=== PATIENT | female | born 2000 | race Caucasian/White ===

== ENCOUNTER 2018-02-02 15:42 | Emergency (ER) | payer BC ==
--- NOTE | 2018-02-02 16:26 | ER ---
Nurse's Notes [facility] Name: Jaymie Garduno Age: 17 yrs Sex: Female : 2000 Arrival Date: 02/02/2018 Time: 15:46 Bed 7 Private MD: Gordy Chapin Diagnosis: Pilonidal cyst without abscess Presentation: 02/02 15:58 Presenting complaint: Patient states: "I have a lump on the top of my butt crack. Its lk1 been hurting for about a week, but the lump I noticed today.". Transition of care: patient was not received from another setting of care. Onset of symptoms was February 02, 2018 at 09:00. Care prior to arrival: None. 15:58 Method Of Arrival: Ambulatory lk1 15:58 Acuity: GABY 3 lk1 Triage Assessment: 16:00 General: Appears in no apparent distress. Behavior is calm, cooperative, appropriate lk1 for age. Pain: Complains of pain in coccyx and gluteal cleft Pain currently is 7 out of 10 on a pain scale. Quality of pain is described as pressure. 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 - Social history:: Smoking status: Patient/guardian denies using tobacco. Screenin:25 Abuse screen: Denies threats or abuse. Denies injuries from another. Nutritional hj screening: No deficits noted. Tuberculosis screening: No symptoms or risk factors identified. Fall Risk None identified. Assessment: 16:26 General: Appears in no apparent distress. uncomfortable, Behavior is calm, cooperative, hj appropriate for age. Pain: Complains of pain in gluteal cleft and coccyx. Neuro: Level of Consciousness is awake, alert, obeys commands, Oriented to person, place, time, situation, Appropriate for age. Cardiovascular: Capillary refill < 3 seconds Patient's skin is warm and dry. Respiratory: Airway is patent Respiratory effort is even, unlabored, Respiratory pattern is regular, symmetrical. GI: No signs and/or symptoms were reported involving the gastrointestinal system. : No signs and/or symptoms were reported regarding the genitourinary system. EENT: No signs and/or symptoms were reported regarding the EENT system. Derm: Reports pain. Musculoskeletal: No signs and/or symptoms reported regarding the musculoskeletal system. Vital Signs: 16:01 BP 124 / 86; Pulse 87; Resp 15; Temp 98.2(O); Pulse Ox 99% on R/A; Weight 87.09 kg (R); lk1 Height 5 ft. 6 in. (167.64 cm) (R); Pain 7/10; 16:36 BP 123 / 71; Pulse 90; Resp 18; Pulse Ox 100% on R/A; hj 16:01 Body Mass Index 30.99 (87.09 kg, 167.64 cm) lk1 ED Course: 15:46 Patient arrived in ED. mr 15:46 Gordy Chapin MD is Private Physician. mr 15:59 Triage completed. lk1 16:02 Arm band placed on right wrist. lk1 16:04 [facility] Herbert [facility]-C [facility]. snw 16:04 Alberto Flowers MD is Attending Physician. snw 16:13 Roberth Cruz RN is Primary Nurse. hj 16:25 Joes F Collado MD is Referral Physician. snw 16:25 Patient has correct armband on for positive identification. Placed in gown. Bed in low hj position. Call light in reach. Side rails up X 1. Adult w/ patient. 16:28 No provider procedures requiring assistance completed. Patient did not have IV access hj during this emergency room visit. Administered Medications: 16:13 Drug: Sterling (7.5 mg-325 mg) 1 tabs Route: PO; hj 16:20 Follow up: Response: No adverse reaction hj 16:13 Drug: Clindamycin 300 mg Route: PO; hj 16:21 Follow up: Response: No adverse reaction hj 16:14 Drug: Hibiclens 4 % 1 application Route: Topical; Site: affected area; hj Outcome: 16:25 Discharge ordered by . snw 16:28 Discharged to home ambulatory, with family. hj 16:28 Condition: stable 16:28 Discharge instructions given to patient, Instructed on discharge instructions, follow up and referral plans. Demonstrated understanding of instructions, follow-up care. 16:38 Patient left the ED. hj Signatures: Ashley Herbert, CHILOC COMMODITY DIRECTOR-[place] Xochitl Quintero mr Roberth Cruz, RN RN Heaven Avitia RN RN lk1
--- NOTE | 2018-02-02 16:26 | EDPHYS ---
Physician Documentation [facility] Name: Jaymie Garduno Age: 17 yrs Sex: Female : 2000 Arrival Date: 02/02/2018 Time: 15:46 Bed 7 Private MD: Gordy Chapin ED Physician Alberto Flowers HPI: 02/02 16:15 This 17 yrs old Female presents to ER via Ambulatory with complaints of snw Abscess. 16:15 the patient presents with a swollen area of the gluteal cleft. Description: fluctuant. snw Onset: The symptoms/episode began/occurred suddenly, 1 week(s) ago, and became persistent. Possible cause(s): unknown. Modifying factors: the symptoms are alleviated by nothing, the symptoms are aggravated by pressure, sitting, squeezing the lesion and expressing the contents. Severity of symptoms: At their worst the symptoms were moderate. The patient has not experienced similar symptoms in the past. The patient has not recently seen a physician. 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 - Social history:: Smoking status: Patient/guardian denies using tobacco. ROS: 16:14 Constitutional: Negative for fever, chills, and weight loss, Eyes: Negative for injury, snw pain, redness, and discharge, ENT: Negative for injury, pain, and discharge, Neck: Negative for injury, pain, and swelling, Cardiovascular: Negative for chest pain, palpitations, and edema, Respiratory: Negative for shortness of breath, cough, wheezing, and pleuritic chest pain, Abdomen/GI: Negative for abdominal pain, nausea, vomiting, diarrhea, and constipation, Back: Negative for injury and pain, : Negative for injury, bleeding, discharge, and swelling, MS/Extremity: Negative for injury and deformity, + pain to gluteal cleft Skin: Negative for injury, rash, and discoloration, Neuro: Negative for headache, weakness, numbness, tingling, and seizure. Exam: 16:14 Constitutional: This is a well developed, well nourished patient who is awake, alert, snw and in no acute distress. Head/Face: Normocephalic, atraumatic. Eyes: Pupils equal round and reactive to light, extra-ocular motions intact. Lids and lashes normal. Conjunctiva and sclera are non-icteric and not injected. Cornea within normal limits. Periorbital areas with no swelling, redness, or edema. ENT: Nares patent. No nasal discharge, no septal abnormalities noted. Tympanic membranes are normal and external auditory canals are clear. Oropharynx with no redness, swelling, or masses, exudates, or evidence of obstruction, uvula midline. Mucous membranes moist. Neck: Trachea midline, no thyromegaly or masses palpated, and no cervical lymphadenopathy. Supple, full range of motion without nuchal rigidity, or vertebral point tenderness. No Meningismus. Chest/axilla: Normal chest wall appearance and motion. Nontender with no deformity. No lesions are appreciated. Cardiovascular: Regular rate and rhythm with a normal S1 and S2. No gallops, murmurs, or rubs. Normal PMI, no JVD. No pulse deficits. Respiratory: Lungs have equal breath sounds bilaterally, clear to auscultation and percussion. No rales, rhonchi or wheezes noted. No increased work of breathing, no retractions or nasal flaring. Abdomen/GI: Soft, non-tender, with normal bowel sounds. No distension or tympany. No guarding or rebound. No evidence of tenderness throughout. Back: No spinal tenderness. No costovertebral tenderness. Full range of motion. MS/ Extremity: Pulses equal, no cyanosis. Neurovascular intact. Full, normal range of motion. Neuro: Awake and alert, GCS 15, oriented to person, place, time, and situation. Cranial nerves II-XII grossly intact. Motor strength 5/5 in all extremities. Sensory grossly intact. Cerebellar exam normal. Normal gait. Psych: Awake, alert, with orientation to person, place and time. Behavior, mood, and affect are within normal limits. 16:14 Skin: Appearance: normal except for affected area, induration, that is mild is noted, located on the gluteal cleft. Vital Signs: 16:01 BP 124 / 86; Pulse 87; Resp 15; Temp 98.2(O); Pulse Ox 99% on R/A; Weight 87.09 kg (R); lk1 Height 5 ft. 6 in. (167.64 cm) (R); Pain 7/10; 16:36 BP 123 / 71; Pulse 90; Resp 18; Pulse Ox 100% on R/A; hj 16:01 Body Mass Index 30.99 (87.09 kg, 167.64 cm) lk1 MDM: 16:05 Patient medically screened. [facility] 16:29 Data reviewed: vital signs, nurses notes. Data interpreted: Pulse oximetry: on room air snw is 99 %. Interpretation: normal. Counseling: I had a detailed discussion with the patient and/or guardian regarding: the historical points, exam findings, and any diagnostic results supporting the discharge/admit diagnosis, the presence of at least one elevated blood pressure reading (>120/80) during this emergency department visit, the need for outpatient follow up, to return to the emergency department if symptoms worsen or persist or if there are any questions or concerns that arise at home. Special discussion: I have referred the patient to see his PCP for further evaluation of high blood pressure. Based on the history and exam findings, there is no indication for further emergent testing or inpatient evaluation. I discussed with the patient/guardian the need to see the general surgeon for further evaluation of the symptoms. I discussed with the patient/guardian the need to see the primary care provider for further evaluation of the symptoms. Administered Medications: 16:13 Drug: Negley (7.5 mg-325 mg) 1 tabs Route: PO; 16:20 Follow up: Response: No adverse reaction 16:13 Drug: Clindamycin 300 mg Route: PO; 16:21 Follow up: Response: No adverse reaction 16:14 Drug: Hibiclens 4 % 1 application Route: Topical; Site: affected area; hj Disposition: 02/03 07:33 Co-signature as Attending Physician, Alberto Flowers MD I agree with the assessment and [facility] plan of care. Disposition: 02/02/18 16:25 Discharged to Home. Impression: Pilonidal cyst without abscess. - Condition is Stable. - Discharge Instructions: Pilonidal Cyst, Sitz Bath. - Prescriptions for Clindamycin HCl 300 mg Oral Capsule - take 1 capsule by ORAL route every 8 hours for 10 days; 30 capsule. Diclofenac Sodium 75 mg Oral Tablet Sustained Release - take 1 tablet by ORAL route 2 times per day; 30 tablet. - Medication Reconciliation Form, Thank You Letter, Antibiotic Education, Prescription Opioid Use form. - Follow up: Jose F Collado MD; When: 1 - 2 days; Reason: Recheck today's complaints, Continuance of care, Re-evaluation by your physician. Signatures: Alberto Flowers MD MD cha Therrien, Shelly, ABRASIVE MIXER HELPER-C ABRASIVE MIXER HELPER-Csnw Roberth Cruz, RN RN Heaven Monk RN RN lk1
[2018-02-02] MEDS ORDERED: HYDROCODONE/APAP 7.5/325 MG TAB ONE (16:35)
[2018-02-02] MEDS ORDERED: CLINDAMYCIN HCL 150 MG CAP ONE (16:35)
[2018-02-02 16:50] VITALS: TEMP 98.2
[2018-02-02 16:51] VITALS: BP 123/71; O2SAT 100
== END 2018-02-02 16:38 | disposition home or self-care (01) ==
LOC: ER 15:42
DX: L05.91 Pilonidal cyst without abscess (principal); F41.9 Anxiety disorder, unspecified; F32.9 Major depressive disorder, single episode, unspecified; Z88.5 Allergy status to narcotic agent
CPT/HCPCS: 99283

== ENCOUNTER 2018-07-12 06:06 | Emergency (ER) | payer BC, SELFPAY ==
[2018-07-12] MEDS ORDERED: NA CHLORIDE 0.9% 1,000 ML ONE (06:44)
[2018-07-12] MEDS ORDERED: KETOROLAC 30 MG/ML INJ ONE (06:44)
[2018-07-12] MEDS ORDERED: ONDANSETRON 4 MG/2 ML VIAL ONE (06:45)
[2018-07-12 06:56] LABS: Urine Blood 2+ (NEG); Urine Glucose NEGATIVE (NEG); Urine Protein TRACE (NEG); Urine Specific Gravity >1.030 (1.005-1.030); Urine pH 5.5 (5.0-7.0)
[2018-07-12 07:17] LABS: Urine Bacteria <20 /HPF (<20); Urine Culture Reflex Order NOT NEEDED
[2018-07-12] MEDS ORDERED: PROMETHAZINE 25 MG/ML VIAL ONE (07:18)
[2018-07-12 07:29] LABS: Absolute Lymphocytes (CBC) 2.5 K/uL (0.7-4.9); Absolute Monocytes 0.7 K/uL (0.1-1.3); Absolute Neutrophil 3.6 K/uL (1.8-8.0); Basophils % 0.6 % (0-1.3); Eosinophils % 0.6 % (0-4.4); Hematocrit 40.6 % (36.0-45.0); Lymphocytes % 36.3 % (15.3-44.8); MCH 30.6 pg (27.0-35.0); MCV 88.1 fL (80-100); Monocytes % 9.9 % (3.3-12.3)
[2018-07-12 07:31] LABS: ALT/SGPT 32 U/L (12-78); AST/SGOT 19 U/L (15-37); Albumin 3.8 g/dL (3.4-5.0); Alkaline Phosphatase 56 U/L (45-117); BUN Blood Urea Nitrogen 10 mg/dL (7-18); Bicarbonate 23 mmol/L (21-32); Bilirubin Direct < 0.1 mg/dL (0-0.2); Bilirubin Total 0.3 mg/dL (0.2-1.0); Glucose Level 99 mg/dL (74-106); Lipase 116 U/L (73-393); Potassium 3.9 mmol/L (3.5-5.1); Protein, Total 7.5 g/dL (6.4-8.2); Sodium Level 140 mmol/L (136-145)
--- NOTE | 2018-07-12 08:25 | RAD REPORT ---
EXAM DESCRIPTION: CT - Stone Protocol - 07/12/2018 7:13 am CLINICAL HISTORY: Flank pain. Left flank pain COMPARISON: No comparisons TECHNIQUE: Axial images were obtained without oral or IV contrast. Lack of contrast limits solid org an and vascular assessment. The [id number] spans the entirety of the system partially obscuring uppermost abdomen and lung bases. Coronal reformatted images were obtained and reviewed. All CT scans are performed using dose optimization technique as appropriate and may include automated exposure control or mA/KV adjustment according to patient size. FINDINGS: The lower lung yang are clear. Imaged portions of the liver and spleen show no suspicious findings on non-contrast imaging. The panc reas and adrenal glands are normal. No pathologic lymphadenopathy in the abdomen or pelvis. 5 mm stone (910 HU) mid left ureter results in moderate left hydronephrosis. Additional punctate bila teral renal calculi. No bowel obstruction, free air, free fluid or abscess. Normal appendix noted. No significant bony abnormality. IMPRESSION: 5 mm stone (910 HU) mid left ureter resulting in moderate left hydronephrosis.
--- NOTE | 2018-07-12 08:49 | ER ---
Nurse's Notes [facility] Name: Jaymie Garduno Age: 18 yrs Sex: Female : 2000 Arrival Date: 07/12/2018 Time: 06:09 Bed 7 Private MD: Gordy Chapin Diagnosis: Calculus of kidney with calculus of ureter-Left Presentation: 07/12 06:30 Presenting complaint: Patient states: left lower quadrant pain and nausea that started cc3 2 hours ago with tingling and numbness of her left leg; associated with left back pain. Transition of care: patient was not received from another setting of care. Onset of symptoms was July 12, 2018. Risk Assessment: Do you want to hurt yourself or someone else? Patient reports no desire to harm self or others. Initial Sepsis Screen: Does the patient meet any 2 criteria? No. Patient's initial sepsis screen is negative. Does the patient have a suspected source of infection? No. Patient's initial sepsis screen is negative. Care prior to arrival: None. 06:30 Method Of Arrival: Ambulatory cc3 06:30 Acuity: GABY 3 cc3 Triage Assessment: 06:30 General: Appears in no apparent distress. comfortable, Behavior is calm, cooperative, cc3 appropriate for age. Pain: Complains of pain in left lower quadrant abdominal pain and left back pain Pain radiates to left leg tingling and numbness Pain currently is 8 out of 10 on a pain scale. Quality of pain is described as aching. EENT: No signs and/or symptoms were reported regarding the EENT system. Neuro: Level of Consciousness is awake, alert, obeys commands, Oriented to person, place, time, situation, Appropriate for age. Cardiovascular: Denies chest pain. Respiratory: Airway is patent Respiratory effort is even, unlabored, Respiratory pattern is regular, symmetrical. GI: Reports lower abdominal pain, nausea, since 2 hours back. : No signs and/or symptoms were reported regarding the genitourinary system. Derm: No signs and/or symptoms reported regarding the dermatologic system. Musculoskeletal: Reports numbness in left leg pain in left back. 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 - Social history:: Smoking status: Patient/guardian denies using tobacco, never smoked. - Ebola Screening: : No symptoms or risks identified at this time. Screenin:30 Abuse screen: Denies threats or abuse. Denies injuries from another. Nutritional cc3 screening: No deficits noted. Tuberculosis screening: No symptoms or risk factors identified. Fall Risk Ambulatory Aid- None/Bed Rest/Nurse Assist (0 pts). Gait- Normal/Bed Rest/Wheelchair (0 pts) Mental Status- Oriented to own ability (0 pts). Assessment: 06:30 General: Appears in no apparent distress. comfortable, Behavior is calm, cooperative, cc3 appropriate for age. Pain: Complains of pain in left low back and left lower quadrant Pain currently is 8 out of 10 on a pain scale. Quality of pain is described as aching. Neuro: Level of Consciousness is awake, alert, obeys commands, Oriented to person, place, time, situation, Appropriate for age. Cardiovascular: Denies chest pain. Respiratory: Airway is patent Respiratory effort is even, unlabored, Respiratory pattern is regular, symmetrical. GI: Abdomen is round non-distended, Reports lower abdominal pain, nausea. : No signs and/or symptoms were reported regarding the genitourinary system. EENT: No signs and/or symptoms were reported regarding the EENT system. Derm: No signs and/or symptoms reported regarding the dermatologic system. Musculoskeletal: Reports numbness in left leg pain in left back. 07:03 General: Appears uncomfortable, Behavior is calm, cooperative. Pain: Complains of pain aa5 in left lower quadrant and left low back Pain does not radiate. Pain currently is 8 out of 10 on a pain scale. Quality of pain is described as crampy, squeezing, Pain began approximately 2 hours FISHER LOBSTER Is continuous. Neuro: Level of Consciousness is awake, alert, obeys commands, Oriented to person, place, time, situation, Appropriate for age. Cardiovascular: Heart tones S1 S2 present Rhythm is regular. Respiratory: Airway is patent Respiratory effort is even, unlabored, Respiratory pattern is regular, symmetrical, Breath sounds are clear bilaterally. GI: Abdomen is round non-distended, Bowel sounds present X 4 quads. Abd is non tender X 4 quads Reports nausea is unchanged. : No signs and/or symptoms were reported regarding the genitourinary system. EENT: No signs and/or symptoms were reported regarding the EENT system. Derm: Skin is pink, warm \T\ dry. Musculoskeletal: Range of motion: intact in all extremities, Pt reports tingling to left leg. 07:05 Reassessment: Pt taken to CT via wheelchair. aa5 07:18 Reassessment: Patient and/or family updated on plan of care and expected duration. Pain aa5 level reassessed. Patient is alert, oriented x 3, equal unlabored respirations, skin warm/dry/pink. Pt back from CT scan . 08:16 Reassessment: Pt resting in bed with eyes closed, easy to arouse to verbal stimuli. Pt aa5 states feeling better, rates pain a 4/10 on a pain scale, denies nausea. Bed remains locked in low position, side rails x 1, and call [place] within reach. . 09:05 Reassessment: Patient is alert, oriented x 3, equal unlabored respirations, skin aa5 warm/dry/pink. Vital Signs: 06:30 BP 127 / 88; Pulse 90; Resp 20; Temp 98.8(O); Pulse Ox 99% on R/A; Weight 87.09 kg; cc3 Height 5 ft. 6 in. (167.64 cm); Pain 8/10; 07:04 BP 130 / 75; Pulse 76; Resp 18 S; Pulse Ox 99% on R/A; aa5 08:19 BP 128 / 73; Pulse 67; Resp 16 S; Temp 98.1(O); Pulse Ox 99% on R/A; Pain 4/10; aa5 06:30 Body Mass Index 30.99 (87.09 kg, 167.64 cm) cc3 ED Course: 06:09 Patient arrived in ED. am2 06:09 Gordy Chapin MD is Private Physician. am2 06:14 [facility] Jo[facility]quin [facility]. pm1 06:14 Alberto Flowers MD is Attending Physician. pm1 06:28 Gordy Villa, RN is Primary Nurse. bp 06:30 Patient has correct armband on for positive identification. Bed in low position. Call cc3 light in reach. Side rails up X 1. Adult w/ patient. 06:30 Inserted saline lock: 20 gauge in right wrist, using aseptic technique. Blood collected.cc3 06:45 Triage completed. cc3 07:00 Report given to CAR Cook for continuity of care. cc3 07:12 CT completed. Patient tolerated procedure well. Patient moved to CT via wheelchair. jg6 Patient moved back from CT. 07:12 CT Stone Protocol In Process Unspecified. EDMS 08:47 Syeda Decker MD is Referral Physician. pm1 09:05 No provider procedures requiring assistance completed. IV discontinued, intact, aa5 bleeding controlled, No redness/swelling at site. Pressure dressing applied. Administered Medications: 06:40 Drug: TORadol 30 mg Route: IVP; Site: right hand; bp 07:04 Follow up: Response: No adverse reaction aa5 06:40 Drug: NS 0.9% 1000 ml Route: IV; Rate: 1000 ml; Site: right hand; bp 07:20 Follow up: IV Status: Completed infusion aa5 06:40 Drug: Zofran 4 mg Route: IVP; Site: right hand; bp 07:04 Follow up: Response: No adverse reaction aa5 07:18 Drug: Phenergan 12.5 mg Route: IVP; Site: right hand; aa5 07:25 Follow up: Response: No adverse reaction aa5 09:05 Drug: Flomax 0.4 mg Route: PO; aa5 09:07 Follow up: Response: Medication administered at discharge. aa5 Outcome: 08:48 Discharge ordered by . pm1 09:07 Discharged to home ambulatory, with family. aa5 09:07 Condition: improved 09:07 Discharge instructions given to patient, Instructed on discharge instructions, follow up and referral plans. medication usage, Demonstrated understanding of instructions, follow-up care, medications, Prescriptions given X 3. 09:08 Patient left the ED. aa5 Signatures: Dispatcher [employer] EDWA Joyce Acosta, RN RN aa5 Lev Joaquin, ELAINA DIRECTOR NETWORK DEVELOPMENT pm1 Ana Fritz am2 Gordy Villa, RN RN bp Jodi Miles cc3 Hiwot uCrtis jg6 Corrections: (The following items were deleted from the chart) 06:55 06:30 BP 127 / 88; Pulse 90bpm; Resp 20bpm; Pulse Ox 99% RA; Temp 98.8F Oral; 87.09 kg; cc3 Height 5 ft. 6 in.; BMI: 30.9; cc3
--- NOTE | 2018-07-12 08:49 | EDPHYS ---
Physician Documentation [facility] Name: Jaymie Garduno Age: 18 yrs Sex: Female : 2000 Arrival Date: 07/12/2018 Time: 06:09 Bed 7 Private MD: Gordy Chapin ED Physician Alberto Flowers HPI: 07/12 06:26 This 18 yrs old Female presents to ER via Unassigned with complaints of pm1 Abdominal Pain - LLQ. 06:26 The patient presents with abdominal pain in the left lower quadrant. Onset: The pm1 symptoms/episode began/occurred 2 hour(s) ago. The symptoms radiate to the left flank. Associated signs and symptoms: Pertinent positives: nausea, Pertinent negatives: chest pain, constipation, diarrhea, dysuria, fever, hematuria, shortness of breath, vomiting. The symptoms are described as constant, Pressure sensation like she needs to have a bowel movement. Modifying factors: The symptoms are alleviated by nothing, the symptoms are aggravated by nothing. Severity of pain: in the emergency department the pain is actually worse. The patient has experienced similar episodes in the past, several times, similar to prior kidney stones. The patient has not recently seen a physician. 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 - Social history:: Smoking status: Patient/guardian denies using tobacco, never smoked. - Ebola Screening: : No symptoms or risks identified at this time. ROS: 06:26 Constitutional: Negative for fever, chills, and weight loss, Eyes: Negative for injury, pm1 pain, redness, and discharge, ENT: Negative for injury, pain, and discharge, Neck: Negative for injury, pain, and swelling, Cardiovascular: Negative for chest pain, palpitations, and edema, Respiratory: Negative for shortness of breath, cough, wheezing, and pleuritic chest pain. 06:26 : Negative for injury, bleeding, discharge, and swelling, MS/Extremity: Negative for injury and deformity, Skin: Negative for injury, rash, and discoloration, Neuro: Negative for headache, weakness, numbness, tingling, and seizure. 06:26 Abdomen/GI: Positive for abdominal pain, of the left lower quadrant. 06:26 Back: Positive for flank pain, on the left. Exam: 06:26 Constitutional: This is a well developed, well nourished patient who is awake, alert, pm1 and in no acute distress. Head/Face: Normocephalic, atraumatic. Eyes: Pupils equal round and reactive to light, extra-ocular motions intact. Lids and lashes normal. Conjunctiva and sclera are non-icteric and not injected. Cornea within normal limits. Periorbital areas with no swelling, redness, or edema. ENT: Nares patent. No nasal discharge, no septal abnormalities noted. Tympanic membranes are normal and external auditory canals are clear. Oropharynx with no redness, swelling, or masses, exudates, or evidence of obstruction, uvula midline. Mucous membranes moist. Neck: Trachea midline, no thyromegaly or masses palpated, and no cervical lymphadenopathy. Supple, full range of motion without nuchal rigidity, or vertebral point tenderness. No Meningismus. Chest/axilla: Normal chest wall appearance and motion. Nontender with no deformity. No lesions are appreciated. Cardiovascular: Regular rate and rhythm with a normal S1 and S2. No gallops, murmurs, or rubs. Normal PMI, no JVD. No pulse deficits. Respiratory: Lungs have equal breath sounds bilaterally, clear to auscultation and percussion. No rales, rhonchi or wheezes noted. No increased work of breathing, no retractions or nasal flaring. Abdomen/GI: Soft, non-tender, with normal bowel sounds. No distension or tympany. No guarding or rebound. No evidence of tenderness throughout. 06:26 Skin: Warm, dry with normal turgor. Normal color with no rashes, no lesions, and no evidence of cellulitis. MS/ Extremity: Pulses equal, no cyanosis. Neurovascular intact. Full, normal range of motion. 06:26 Back: pain, that is mild, of the left low back, normal spinal alignment noted. 06:26 Neuro: Orientation: is normal, Motor: moves all fours, Sensation: is normal, no obvious gross deficits, Gait: is steady, at a normal pace, without difficulty. Vital Signs: 06:30 BP 127 / 88; Pulse 90; Resp 20; Temp 98.8(O); Pulse Ox 99% on R/A; Weight 87.09 kg; cc3 Height 5 ft. 6 in. (167.64 cm); Pain 8/10; 07:04 BP 130 / 75; Pulse 76; Resp 18 S; Pulse Ox 99% on R/A; aa5 08:19 BP 128 / 73; Pulse 67; Resp 16 S; Temp 98.1(O); Pulse Ox 99% on R/A; Pain 4/10; aa5 06:30 Body Mass Index 30.99 (87.09 kg, 167.64 cm) cc3 MDM: 06:14 Patient medically screened. pm1 06:44 Data reviewed: vital signs. Data interpreted: Pulse oximetry: on room air is 99 %. pm1 Interpretation: normal. 08:46 Counseling: I had a detailed discussion with the patient and/or guardian regarding: the pm1 historical points, exam findings, and any diagnostic results supporting the discharge/admit diagnosis, lab results, radiology results, the need for outpatient follow up, for definitive care, a urologist, to return to the emergency department if symptoms worsen or persist or if there are any questions or concerns that arise at home. 08:46 ED course: Patient with improved pain. Offered patient additional pain medication in pm1 the ER and she refused. 07/12 06:26 Order name: Basic Metabolic Panel; Complete Time: 07:32 pm07/12 06:26 Order name: CBC with Diff; Complete Time: 07:35 pm07/12 06:26 Order name: Hepatic Function; Complete Time: 07:32 pm07/12 06:26 Order name: Lipase; Complete Time: 07:32 pm07/12 06:26 Order name: Urine Microscopic Only; Complete Time: 07:22 pm07/12 06:42 Order name: Urine Dipstick--Ancillary (enter results); Complete Time: 07:10 rg2 07/12 06:26 Order name: Urine Test (obtain specimen); Complete Time: 06:57 pm07/12 06:26 Order name: CT Stone Protocol; Complete Time: 08:27 pm07/12 06:42 Order name: Urine --Ancillary (enter results); Complete Time: 07:10 rg2 07/12 06:26 Order name: IV Saline Lock; Complete Time: 06:39 pm1 07/12 06:26 Order name: Labs collected and sent; Complete Time: 06:57 pm1 07/12 06:26 Order name: Urine Dipstick-Ancillary (obtain specimen); Complete Time: 06:55 pm1 Administered Medications: 06:40 Drug: TORadol 30 mg Route: IVP; Site: right hand; bp 07:04 Follow up: Response: No adverse reaction aa5 06:40 Drug: NS 0.9% 1000 ml Route: IV; Rate: 1000 ml; Site: right hand; bp 07:20 Follow up: IV Status: Completed infusion aa5 06:40 Drug: Zofran 4 mg Route: IVP; Site: right hand; bp 07:04 Follow up: Response: No adverse reaction aa5 07:18 Drug: Phenergan 12.5 mg Route: IVP; Site: right hand; aa5 07:25 Follow up: Response: No adverse reaction aa5 09:05 Drug: Flomax 0.4 mg Route: PO; aa5 09:07 Follow up: Response: Medication administered at discharge. aa5 Disposition: 09:20 Co-signature as Attending Physician, Alberto Flowers MD I agree with the assessment and lito plan of care. Disposition: 07/12/18 08:48 Discharged to Home. Impression: Calculus of kidney with calculus of ureter - Left. - Condition is Stable. - Discharge Instructions: Kidney Stones, Dietary Guidelines to Help Prevent Kidney Stones. - Prescriptions for Tylenol- Codeine #3 300-30 mg Oral Tablet - take 2 tablets by ORAL route every 6 hours As needed; 20 tablet. promethazine 25 mg Oral Tablet - take 1 tablet by ORAL route every 6 hours As needed; 20 tablet. Flomax 0.4 mg Oral Capsule, Sust. Release 24 hr - take 1 capsule by ORAL route once daily 1/2 hour following the same meal each day; 30 capsule. - Medication Reconciliation Form, Thank You Letter, Antibiotic Education, Prescription Opioid Use form. - Follow up: Emergency Department; When: As needed; Reason: Worsening of condition. Follow up: Syeda Decker MD; When: 2 - 3 days; Reason: Recheck today's complaints, Continuance of care, Re-evaluation by your physician. - Problem is new. - Symptoms have improved. Signatures: Dispatcher [employer] EDAlberto Alonzo MD MD cha Calderon, Audri, RN RN aa5 Lev Joaquin, ASSIGNMENT MANAGER ASSIGNMENT MANAGER pm1 Gordy Villa RN RN bp Jodi Miles cc3 Corrections: (The following items were deleted from the chart) 09:08 08:48 07/12/2018 08:48 Discharged to Home. Impression: Calculus of kidney with calculus aa5 of ureter - Left. Condition is Stable. Forms are Medication Reconciliation Form, Thank You Letter, Antibiotic Education, Prescription Opioid Use. Follow up: Emergency Department; When: As needed; Reason: Worsening of condition. Follow up: Syeda Decker; When: 2 - 3 days; Reason: Recheck today's complaints, Continuance of care, Re-evaluation by your physician. Problem is new. Symptoms have improved. pm1
[2018-07-12] MEDS ORDERED: TAMSULOSIN 0.4 MG SR CAP ONE (09:10)
[2018-07-12 09:16] VITALS: O2SAT 99
[2018-07-12 09:21] VITALS: BP 128/73; TEMP 98.1
== END 2018-07-12 09:08 | disposition home or self-care (01) ==
LOC: ER 06:06
DX: N20.2 Calculus of kidney with calculus of ureter (principal); Z88.5 Allergy status to narcotic agent
CPT/HCPCS: 36415; 74176; 76377; 80048; 80076; 81003; 81015; 81025; 83690; 85025; 96361; 96374; 96375; 99284; J2405; J2550; J7030

== ENCOUNTER 2018-10-06 21:50 | Emergency (ER) | payer BC, SELFPAY ==
[2018-10-06] MEDS ORDERED: ONDANSETRON 4 MG/2 ML VIAL ONE (22:49)
[2018-10-06 22:50] LABS: Absolute Lymphocytes (CBC) 2.1 K/uL (0.7-4.9); Absolute Monocytes 0.7 K/uL (0.1-1.3); Absolute Neutrophil 4.5 K/uL (1.8-8.0); Basophils % 0.6 % (0-1.3); Eosinophils % 0.2 % (0-4.4); Hematocrit 41.4 % (36.0-45.0); Lymphocytes % 28.3 % (15.3-44.8); MCH 30.2 pg (27.0-35.0); MCV 86.8 fL (80-100); MPV 9.3 fL (7.6-11.3); RBC Red Blood Cell Count 4.77 M/uL (3.86-4.86)
[2018-10-06 23:02] LABS: Urine Blood TRACE (NEG); Urine Glucose NEGATIVE (NEG); Urine Protein 1+ (NEG); Urine Specific Gravity 1.025 (1.005-1.030)
[2018-10-06 23:45] LABS: Albumin 4.5 g/dL (3.4-5.0); Bilirubin Direct 0.2 mg/dL (0-0.2); Potassium 3.6 mmol/L (3.5-5.1); Protein, Total 8.1 g/dL (6.4-8.2)
[2018-10-06 23:56] LABS: Urine Bacteria >50 /HPF (<20); Urine Culture Reflex Order REFLEXED; Urine Mucus HEAVY /HPF (NONE SEEN); Urine RBC <5 /HPF (NONE SEEN)
[2018-10-07 00:05] LABS: Thyroid Stimulating Hormone 1.31 uIU/mL (0.360-3.740)
--- NOTE | 2018-10-07 02:31 | EDPHYS ---
Physician Documentation [facility] Name: Jaymie Garduno Age: 18 yrs Sex: Female : 2000 Arrival Date: 10/06/2018 Time: 21:55 Bed 5 Private MD: Gordy Chapin ED Physician Janusz Sun HPI: 10/07 02:26 This 18 yrs old Female presents to ER via Ambulatory with complaints of gs Vomiting, Dizziness, Body ache. 02:26 The patient presents to the emergency department with vomiting. Onset: The gs symptoms/episode began/occurred 2 week(s) ago. Possible causes: unknown. The symptoms are aggravated by nothing. The symptoms are alleviated by nothing. Associated signs and symptoms: Pertinent positives: bodyaches, dizziness. Severity of symptoms: At their worst the symptoms were moderate in the emergency department the symptoms have improved moderately. The patient has experienced similar episodes in the past, a few times. The patient has not recently seen a physician. 02:26 pt says she has been worked up for lupus by certified medication technician in [place] , no meds.. 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 - Social history:: Smoking status: Patient/guardian denies using tobacco. - Ebola Screening: : No symptoms or risks identified at this time. ROS: 10/07 02:26 All other systems are negative. gs Exam: 02:26 Head/Face: Normocephalic, atraumatic. Eyes: Pupils equal round and reactive to light, gs extra-ocular motions intact. Lids and lashes normal. Conjunctiva and sclera are non-icteric and not injected. Cornea within normal limits. Periorbital areas with no swelling, redness, or edema. ENT: Nares patent. No nasal discharge, no septal abnormalities noted. Tympanic membranes are normal and external auditory canals are clear. Oropharynx with no redness, swelling, or masses, exudates, or evidence of obstruction, uvula midline. Mucous membranes moist. Neck: Trachea midline, no thyromegaly or masses palpated, and no cervical lymphadenopathy. Supple, full range of motion without nuchal rigidity, or vertebral point tenderness. No Meningismus. Chest/axilla: Normal chest wall appearance and motion. Nontender with no deformity. No lesions are appreciated. Cardiovascular: Regular rate and rhythm with a normal S1 and S2. No gallops, murmurs, or rubs. Normal PMI, no JVD. No pulse deficits. Respiratory: Lungs have equal breath sounds bilaterally, clear to auscultation and percussion. No rales, rhonchi or wheezes noted. No increased work of breathing, no retractions or nasal flaring. Abdomen/GI: Soft, non-tender, with normal bowel sounds. No distension or tympany. No guarding or rebound. No evidence of tenderness throughout. Back: No spinal tenderness. No costovertebral tenderness. Full range of motion. Skin: Warm, dry with normal turgor. Normal color with no rashes, no lesions, and no evidence of cellulitis. MS/ Extremity: Pulses equal, no cyanosis. Neurovascular intact. Full, normal range of motion. Neuro: Awake and alert, GCS 15, oriented to person, place, time, and situation. Cranial nerves II-XII grossly intact. Motor strength 5/5 in all extremities. Sensory grossly intact. Cerebellar exam normal. Normal gait. 02:26 Constitutional: The patient appears alert, awake. Vital Signs: 10/06 22:05 BP 150 / 100; Pulse 102; Resp 18; Temp 97.1; Pulse Ox 98% on R/A; Weight 90.72 kg; la1 Height 5 ft. 7 in. (170.18 cm); 23:08 BP 128 / 80; Pulse 86; Resp 18; Pulse Ox 100% on R/A; tl2 12 00:14 BP 109 / 82; Pulse 92; Resp 18; Pulse Ox 98% on R/A; tl2 01:14 BP 139 / 94; Pulse 88; Resp 18; Pulse Ox 98% on R/A; tl2 10/06 22:05 Body Mass Index 31.32 (90.72 kg, 170.18 cm) la1 MDM: 10/06 22:27 Patient medically screened. 10/07 02:26 Differential diagnosis: gastritis, pancreatitis, gastroenteritis, fibromyalgia, gerd. gs Data reviewed: vital signs, nurses notes. Response to treatment: the patient's symptoms have markedly improved after treatment, no emesis well hydrated. 02:47 ED course: pt had concerns says cant keep anything down but chose not to take fluid gs challenge, spent time explaining limitations of workup as was essentially normal except urine results. pt states her headaches were the same onset and intensity as her previous migraines and sometimes not as bad. mother concerned about meningitis. pt without fever wbc and no meningeal signs and i explained to her. recommended follow up with pcp and certified medication technician. pt walked out did not vomit anytime during encounter.. 10/06 22:28 Order name: Urine Microscopic Only; Complete Time: 00:22 10/06 22:28 Order name: TSH; Complete Time: 00:22 10/06 22:28 Order name: Basic Metabolic Panel; Complete Time: 00:22 10/06 22:28 Order name: CBC with Diff; Complete Time: 23:40 gs 10/06 22:28 Order name: Hepatic Function; Complete Time: 00:22 10/06 22:28 Order name: Lipase; Complete Time: 00:22 10/06 22:28 Order name: Urine Test (obtain specimen); Complete Time: 22:51 10/06 22:28 Order name: Urine Dipstick-Ancillary (obtain specimen); Complete Time: 22:51 10/06 22:28 Order name: IV Saline Lock; Complete Time: 22:36 10/06 22:28 Order name: CPK; Complete Time: 00:22 10/06 22:28 Order name: [place] Screen Profile; Complete Time: 23:55 10/06 23:00 Order name: Urine Dipstick--Ancillary (enter results); Complete Time: 23:40 ar5 10/06 23:58 Order name: Urine Culture EDMS 10/06 22:28 Order name: Labs collected and sent; Complete Time: 22:36 Administered Medications: 10/06 22:43 Drug: Zofran 4 mg Route: IVP; Site: right antecubital; tl2 23:08 Follow up: Response: No adverse reaction; Nausea is decreased tl2 Disposition: 10/07/18 02:30 Discharged to Home. Impression: Vomiting, Cystitis. - Condition is Stable. - Discharge Instructions: Nausea and Vomiting, Adult. - Prescriptions for Zofran 4 mg Oral Tablet - take 1 tablet by ORAL route every 12 hours As needed; 6 tablet. Pepcid 20 mg Oral Tablet - take 1 tablet by ORAL route once daily; 20 tablet. Keflex 500 mg Oral Capsule - take 1 capsule by ORAL route every 12 hours for 10 days; 20 capsule. - Medication Reconciliation Form, Thank You Letter, Antibiotic Education, Prescription Opioid Use form. - Follow up: Private Physician; When: 2 - 3 days; Reason: Re-evaluation by your physician. Signatures: Dispatcher [employer] EDMS Amilcar Melendez RN RN la1 Emma Rendon RN RN tl2 Janusz Sun MD MD Wing Butt RN RN rr5 Corrections: (The following items were deleted from the chart) 10/07 02:46 02:30 10/07/2018 02:30 Discharged to Home. Impression: Vomiting. Condition is Stable. gs Forms are Medication Reconciliation Form, Thank You Letter, Antibiotic Education, Prescription Opioid Use. Follow up: Private Physician; When: 2 - 3 days; Reason: Re-evaluation by your physician. 02:47 02:26 Onset: The symptoms/episode began/occurred 3 week(s) ago, [facility] 02:57 02:46 10/07/2018 02:30 Discharged to Home. Impression: Vomiting; Cystitis. Condition is rr5 Stable. Discharge Instructions: Nausea and Vomiting, Adult. Prescriptions for Zofran 4 mg Oral Tablet - take 1 tablet by ORAL route every 12 hours As needed; 6 tablet, Pepcid 20 mg Oral Tablet - take 1 tablet by ORAL route once daily; 20 tablet. and Forms are Medication Reconciliation Form, Thank You Letter, Antibiotic Education, Prescription Opioid Use. Follow up: Private Physician; When: 2 - 3 days; Reason: Re-evaluation by your physician.
--- NOTE | 2018-10-07 02:31 | ER ---
Nurse's Notes [facility] Name: Jaymie Garduno Age: 18 yrs Sex: Female : 2000 Arrival Date: 10/06/2018 Time: 21:55 Bed 5 Private MD: Gordy Chapin Diagnosis: Vomiting;Cystitis Presentation: 10/06 22:04 Presenting complaint: Patient states: N/V/D for the last 2 weeks, migraines, body la1 aches, dizziness. Transition of care: patient was not received from another setting of care. Onset of symptoms was October 06, 2018. Risk Assessment: Do you want to hurt yourself or someone else? Patient reports no desire to harm self or others. Initial Sepsis Screen: Does the patient meet any 2 criteria? No. Patient's initial sepsis screen is negative. Does the patient have a suspected source of infection? No. Patient's initial sepsis screen is negative. Care prior to arrival: None. 22:04 Method Of Arrival: Ambulatory la1 22:04 Acuity: GABY 3 la1 Triage Assessment: 22:44 General: Appears in no apparent distress. uncomfortable, Behavior is cooperative, tl2 appropriate for age, anxious. Pain: Complains of pain in body aches. Neuro: Level of Consciousness is awake, alert, obeys commands, Oriented to person, place, time, situation. Neuro: Reports dizziness. Cardiovascular: Denies chest pain. Respiratory: Airway is patent Respiratory effort is even, unlabored, Respiratory pattern is regular, symmetrical. GI: Reports nausea, vomiting. : No signs and/or symptoms were reported regarding the genitourinary system. Derm: Skin is pink, warm \T\ dry. ERP PM: 22:05 LMP 09/20/2018 la1 Historical: - Allergies: 22:05 Morphine; la1 - Home Meds: 22:46 Lexapro 5 mg Oral tab 1 tab once daily [Active]; tl2 - PMHx: 22:05 Anxiety; Depression; heart problem; Kidney stones; la1 - Immunization history:: Adult Immunizations up to date. - Social history:: Smoking status: Patient/guardian denies using tobacco. - Ebola Screening: : No symptoms or risks identified at this time. Screenin:38 Abuse screen: Denies threats or abuse. Nutritional screening: No deficits noted. tl2 Tuberculosis screening: No symptoms or risk factors identified. Fall Risk None identified. Assessment: 22:44 General: see triage assessment. tl2 23:08 Reassessment: Patient appears in no apparent distress at this time. Patient and/or tl2 family updated on plan of care and expected duration. Pain level reassessed. Patient is alert, oriented x 3, equal unlabored respirations, skin warm/dry/pink. Patient states feeling better. 10/07 00:15 Reassessment: Patient appears in no apparent distress at this time. Patient and/or tl2 family updated on plan of care and expected duration. Pain level reassessed. Patient is alert, oriented x 3, equal unlabored respirations, skin warm/dry/pink. 01:14 Reassessment: Patient appears in no apparent distress at this time. Patient and/or tl2 family updated on plan of care and expected duration. Pain level reassessed. Patient is alert, oriented x 3, equal unlabored respirations, skin warm/dry/pink. pending dispo. 02:49 Reassessment: Patient appears in no apparent distress at this time. Patient and/or tl2 family updated on plan of care and expected duration. Pain level reassessed. Patient is alert, oriented x 3, equal unlabored respirations, skin warm/dry/pink. Dr. Sun at bedside discussing discharge with pt, pt states she wants to go home. Pt verbalized understanding of discharge instructions, need for follow up and prescription usage. Vital Signs: 10/06 22:05 BP 150 / 100; Pulse 102; Resp 18; Temp 97.1; Pulse Ox 98% on R/A; Weight 90.72 kg; la1 Height 5 ft. 7 in. (170.18 cm); 23:08 BP 128 / 80; Pulse 86; Resp 18; Pulse Ox 100% on R/A; tl2 10/07 00:14 BP 109 / 82; Pulse 92; Resp 18; Pulse Ox 98% on R/A; tl2 01:14 BP 139 / 94; Pulse 88; Resp 18; Pulse Ox 98% on R/A; tl2 10/06 22:05 Body Mass Index 31.32 (90.72 kg, 170.18 cm) la1 ED Course: 10/06 21:55 Patient arrived in ED. es 21:56 Gordy Chapin MD is Private Physician. es 22:05 Triage completed. la1 22:06 Arm band placed on left wrist. la1 22:20 Janusz Sun MD is Attending Physician. 22:28 Wing Butt, RN is Primary Nurse. rr5 22:37 Inserted saline lock: 20 gauge in right antecubital area, using aseptic technique. tl2 Blood collected. 22:45 Patient has correct armband on for positive identification. Bed in low position. Call tl2 light in reach. Side rails up X 1. Adult w/ patient. 10/07 02:50 No provider procedures requiring assistance completed. IV discontinued, intact, tl2 bleeding controlled, No redness/swelling at site. Pressure dressing applied. Administered Medications: 10/06 22:43 Drug: Zofran 4 mg Route: IVP; Site: right antecubital; tl2 23:08 Follow up: Response: No adverse reaction; Nausea is decreased tl2 Outcome: 10/07 02:30 Discharge ordered by . 02:50 Discharged to home ambulatory, with family. tl2 02:50 Condition: stable 02:50 Discharge instructions given to patient, family, Instructed on discharge instructions, follow up and referral plans. medication usage, Demonstrated understanding of instructions, follow-up care, medications, Prescriptions given X 3. 02:57 Patient left the ED. rr5 Signatures: Ruby Perez Lee RN CAR la1 Emma Rendon RN RN tl2 Janusz Sun MD MD gs Roque, Raymond, RN RN rr5
[2018-10-07 03:05] VITALS: TEMP 97.1
[2018-10-07 03:08] VITALS: O2SAT 98
[2018-10-07 03:09] VITALS: BP 139/94
== END 2018-10-07 02:57 | disposition home or self-care (01) ==
LOC: ER 21:50
DX: N30.90 Cystitis, unspecified without hematuria (principal); R11.10 Vomiting, unspecified; F41.9 Anxiety disorder, unspecified; F32.9 Major depressive disorder, single episode, unspecified; Z79.899 Other long term (current) drug therapy
CPT/HCPCS: 36415; 80048; 80076; 81003; 81015; 82550; 83690; 84443; 85025; 86308; 87086; 87088; 96374; 99284; J2405

== ENCOUNTER 2018-12-25 20:14 | Emergency (ER) | payer BC ==
[2018-12-25] MEDS ORDERED: NA CHLORIDE 0.9% 1,000 ML ONE (21:14)
[2018-12-25] MEDS ORDERED: ONDANSETRON 4 MG/2 ML VIAL ONE (21:14)
[2018-12-25 21:23] LABS: Absolute Lymphocytes (CBC) 1.1 K/uL (0.7-4.9); Absolute Monocytes 0.6 K/uL (0.1-1.3); Absolute Neutrophil 7.1 K/uL (1.8-8.0); Basophils % 0.4 % (0-1.3); Eosinophils % 0.1 % (0-4.4); Hematocrit 41.4 % (36.0-45.0); MPV 10.1 fL (7.6-11.3); Monocytes % 6.9 % (3.3-12.3); RBC Red Blood Cell Count 4.74 M/uL (3.86-4.86)
[2018-12-25 22:02] LABS: ALT/SGPT 50 U/L (12-78); Albumin 4.1 g/dL (3.4-5.0); Alkaline Phosphatase 54 U/L (45-117); BUN Blood Urea Nitrogen 5 mg/dL (7-18); Bicarbonate 24 mmol/L (21-32); Bilirubin Total 0.9 mg/dL (0.2-1.0); Glucose Level 82 mg/dL (74-106); Lipase 94 U/L (73-393); Protein, Total 7.7 g/dL (6.4-8.2); Sodium Level 137 mmol/L (136-145)
[2018-12-25 22:05] LABS: AST/SGOT 25 U/L (15-37); Bilirubin Direct 0.2 mg/dL (0-0.2); HCG, Quantitative 88412 mIU/mL (1-3); Potassium 4.1 mmol/L (3.5-5.1)
--- NOTE | 2018-12-25 22:41 | ER ---
Nurse's Notes [facility] Name: Jaymie Garduno Age: 18 yrs Sex: Female : 2000 Arrival Date: 12/25/2018 Time: 20:19 Bed 2 Private MD: Diagnosis: Hematemesis;First trimester of ;Dehydration Presentation: 12/25 20:37 Presenting complaint: Patient states: she is 9-10 weeks and has been vomiting bb for several weeks she saw her ob-eyewear consultant in [place] and was given home remedies but now she is vomiting blood which is dark in appearance. Transition of care: patient was not received from another setting of care. Onset of symptoms was December 25, 2018. Risk Assessment: Do you want to hurt yourself or someone else? Patient reports no desire to harm self or others. Initial Sepsis Screen: Does the patient meet any 2 criteria? No. Patient's initial sepsis screen is negative. Does the patient have a suspected source of infection? No. Patient's initial sepsis screen is negative. Care prior to arrival: None. 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 - Social history:: Smoking status: Patient/guardian denies using tobacco, Patient/guardian denies using alcohol, street drugs. - Ebola Screening: : No symptoms or risks identified at this time. - Family history:: not pertinent. - Hospitalizations: : No recent hospitalization is reported. Screenin:00 Abuse screen: Denies threats or abuse. Denies injuries from another. Nutritional aj1 screening: No deficits noted. Tuberculosis screening: No symptoms or risk factors identified. Assessment: 21:00 General: Appears in no apparent distress. comfortable, Behavior is calm, cooperative, aj1 appropriate for age. Pain: Complains of pain in back and abdomen Pain currently is 5 out of 10 on a pain scale. Quality of pain is described as "tightness" Is continuous. Neuro: Level of Consciousness is awake, alert, obeys commands, Oriented to person, place, time, situation. Cardiovascular: Patient's skin is warm and dry. Respiratory: Airway is patent Respiratory effort is even, unlabored, Respiratory pattern is regular, symmetrical. GI: Abdomen is non-distended. GI: Reports nausea, vomiting. : Denies vaginal bleeding. EENT: No signs and/or symptoms were reported regarding the EENT system. Derm: No signs and/or symptoms reported regarding the dermatologic system. Skin is pink, warm \\T\\ dry. normal. Musculoskeletal: No signs and/or symptoms reported regarding the musculoskeletal system. Circulation, motion, and sensation intact. 22:00 Reassessment: Patient appears in no apparent distress at this time. No changes from aj1 previously documented assessment. Patient and/or family updated on plan of care and expected duration. Pain level reassessed. Patient is alert, oriented x 3, equal unlabored respirations, skin warm/dry/pink. 23:14 Reassessment: Patient and/or family updated on plan of care and expected duration. Pain ea level reassessed. Patient is alert, oriented x 3, equal unlabored respirations, skin warm/dry/pink. Discharge instruction given to patient, verbalized the understanding of instruction. Patient states feeling better. Patient states symptoms have improved. Vital Signs: 20:40 BP 134 / 94; Pulse 101; Resp 18 S; Temp 98.2(O); Pulse Ox 98% on R/A; Weight 93.44 kg bb (R); Height 5 ft. 6 in. (167.64 cm) (R); Pain 8/10; 21:45 BP 122 / 77; Pulse 92; Resp 16; Pulse Ox 100% on R/A; aj1 22:50 BP 130 / 70; Pulse 76; Resp 18; Pulse Ox 100% ; ea 20:40 Body Mass Index 33.25 (93.44 kg, 167.64 cm) bb ED Course: 20:19 Patient arrived in ED. es 20:39 Triage completed. bb 20:40 Mabel Landaverde, RN is Primary Nurse. aj1 20:40 Arm band placed on Patient placed in an exam room, on a stretcher, on pulse oximetry. bb Family accompanied patient. 20:41 Hay Ruffin MD is Attending Physician. rn 21:00 Patient has correct armband on for positive identification. aj1 21:00 No provider procedures requiring assistance completed. aj1 21:07 Inserted saline lock: 20 gauge in right antecubital area, using aseptic technique. mw2 Blood collected. 21:57 US OB Limited In Process Unspecified. EDMS 21:57 US Abdomen Limited In Process Unspecified. EDMS 22:00 Ultrasound completed. Patient tolerated well. sg3 23:13 IV discontinued, intact, bleeding controlled, No redness/swelling at site. Pressure ea dressing applied. Administered Medications: 21:09 Drug: NS 0.9% 1000 ml Route: IV; Rate: 1000 ml; Site: right antecubital; aj1 23:00 Follow up: Response: No adverse reaction; IV Status: Completed infusion; IV Intake: ea 1000ml 21:24 CANCELLED (Other Intervention Used): Zofran 4 mg PO once aj1 21:25 Drug: Zofran 4 mg Route: IVP; Site: right antecubital; aj1 22:48 Follow up: Response: No adverse reaction ak1 23:00 Drug: Macrobid 100 mg Route: PO; ea 23:06 Follow up: Response: No adverse reaction; Medication administered at discharge. ea Intake: 23:00 IV: 1000ml; Total: 1000ml. ea Outcome: 22:41 Discharge ordered by . rn 23:13 Condition: improved ea 23:13 Discharge instructions given to patient, Instructed on discharge instructions, follow up and referral plans. medication usage, Demonstrated understanding of instructions, follow-up care, medications, Prescriptions given X 2. 23:16 Discharged to home ambulatory, with friend. ea 23:18 Patient left the ED. ea Signatures: Dispatcher [employer] EDMabel Carranza RN RN aj1 Salyer, Edna es Ballard, Brenda RN Hay Brooks MD MD rn Krenek, Amber, RN RN Coretta Mann RN RN ea Godinez, Sarah sg3 Adair Maldonado mw2 Corrections: (The following items were deleted from the chart) 21:09 21:09 Zofran 4 mg PO aj1 aj1
--- NOTE | 2018-12-25 22:41 | EDPHYS ---
Physician Documentation [facility] Name: Jaymie Garduno Age: 18 yrs Sex: Female : 2000 Arrival Date: 12/25/2018 Time: 20:19 Bed 2 Private MD: ED Physician Hay Ruffin HPI: 12/25 21:45 This 18 yrs old Female presents to ER via Ambulatory with complaints of 9-10 rn WEEKS PREG, vomiting. 21:45 The patient presents to the emergency department with nausea, vomiting. Onset: The rn symptoms/episode began/occurred 3 week(s) ago. Possible causes: unknown. The symptoms are aggravated by nothing. The symptoms are alleviated by nothing. Severity of symptoms: At their worst the symptoms were mild in the emergency department the symptoms are unchanged. The patient has experienced similar episodes in the past. Reports 9-10 weeks , has been throwing up for 3 weeks, seen by her OB, given home remedies, reports still throwing up, generalized weakness, no vaginal bleeding or leakage of fluid, no abd trauma, reports today vomit was a bit darker but no evident blood. No dark black or bloody stool. . 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 - Social history:: Smoking status: Patient/guardian denies using tobacco, Patient/guardian denies using alcohol, street drugs. - Ebola Screening: : No symptoms or risks identified at this time. - Family history:: not pertinent. - Hospitalizations: : No recent hospitalization is reported. ROS: 21:45 Constitutional: Negative for fever, chills, and weight loss, Eyes: Negative for injury, rn pain, redness, and discharge, Neck: Negative for injury, pain, and swelling, Cardiovascular: Negative for chest pain, palpitations, and edema, Respiratory: Negative for shortness of breath, cough, wheezing, and pleuritic chest pain, Abdomen/GI: + nausea/vomiting/diarrhea MS/Extremity: Negative for injury and deformity, Skin: Negative for injury, rash, and discoloration, Neuro: Negative for headache, numbness, tingling, and seizure. Exam: 21:45 Constitutional: This is a well developed, well nourished patient who is awake, alert, rn appears anxious Head/Face: Normocephalic, atraumatic. Eyes: Pupils equal round and reactive to light, extra-ocular motions intact. Lids and lashes normal. Conjunctiva and sclera are non-icteric and not injected. Cornea within normal limits. Periorbital areas with no swelling, redness, or edema. ENT: dry MM Abdomen/GI: soft, non-tender, non-distended Skin: Warm, dry MS/ Extremity: Pulses equal, no cyanosis. Neurovascular intact. Full, normal range of motion. Equal circumference. Neuro: Awake and alert, GCS 15, oriented to person, place, time, and situation. Cranial nerves II-XII grossly intact. Motor strength 5/5 in all extremities. Sensory grossly intact. Cerebellar exam normal. Normal gait. Vital Signs: 20:40 BP 134 / 94; Pulse 101; Resp 18 S; Temp 98.2(O); Pulse Ox 98% on R/A; Weight 93.44 kg bb (R); Height 5 ft. 6 in. (167.64 cm) (R); Pain 8/10; 21:45 BP 122 / 77; Pulse 92; Resp 16; Pulse Ox 100% on R/A; aj1 22:50 BP 130 / 70; Pulse 76; Resp 18; Pulse Ox 100% ; ea 20:40 Body Mass Index 33.25 (93.44 kg, 167.64 cm) bb MDM: 20:41 Patient medically screened. rn 22:39 Differential diagnosis: gastric reflux, vadim amin tear, UTI. Data reviewed: vital rn signs, nurses notes, lab test result(s), radiologic studies, ultrasound, and as a result, I will discharge patient. Counseling: I had a detailed discussion with the patient and/or guardian regarding: the historical points, exam findings, and any diagnostic results supporting the discharge/admit diagnosis, lab results, radiology results, the need for outpatient follow up, to return to the emergency department if symptoms worsen or persist or if there are any questions or concerns that arise at home. Special discussion: Based on the patient's Hx, exam, and Dx evaluation, there is no indication for emergent surgery or inpatient Tx. It is understood by the patient/guardian that if the Sx's persist or worsen they need to return immediately for re-evaluation. I discussed with the patient/guardian in detail that at this point there is no indication for admission to the hospital. It is understood, however, that if the symptoms persist or worsen the patient needs to return immediately for re-evaluation. 22:39 ED course: Will prescribe prn zofran ad macrobid for UTI, will give just a few tablets rn of zofran and recommend OB f/u for further anti-emetic care. . 12/25 20:53 Order name: Gastric Occult Blood; Complete Time: 22: rn 12/25 20:53 Order name: Quantitative Hcg; Complete Time: : rn 12/25 20:53 Order name: Abo/rh Typing; Complete Time: : rn 12/25 20:53 Order name: Basic Metabolic Panel; Complete Time: 22: rn 12/25 20:53 Order name: CBC with Diff; Complete Time: 22: rn 12/25 20:53 Order name: LFT's; Complete Time: 22: rn 12/25 20:53 Order name: Lipase; Complete Time: 22: rn 12/25 20:53 Order name: US OB Limited rn 12/25 20:53 Order name: US Abdomen Limited rn 12/25 22:25 Order name: Urine Microscopic Only; Complete Time: 23:07 bb 12/25 22:25 Order name: Urine Culture 12/25 22:37 Order name: Urine Dipstick--Ancillary (enter results); Complete Time: 23:07 ar5 12/25 20:53 Order name: IV Start; Complete Time: 21:26 rn 12/25 20:53 Order name: Urine Test (obtain specimen); Complete Time: 23:17 rn 12/25 20:53 Order name: Labs collected and sent; Complete Time: 21:25 rn 12/25 20:53 Order name: NPO; Complete Time: 20:56 rn 12/25 20:53 Order name: Urine Dipstick-Ancillary (obtain specimen); Complete Time: 23:17 rn Administered Medications: 21:09 Drug: NS 0.9% 1000 ml Route: IV; Rate: 1000 ml; Site: right antecubital; aj1 23:00 Follow up: Response: No adverse reaction; IV Status: Completed infusion; IV Intake: ea 1000ml 21:24 CANCELLED (Other Intervention Used): Zofran 4 mg PO once aj1 21:25 Drug: Zofran 4 mg Route: IVP; Site: right antecubital; aj1 22:48 Follow up: Response: No adverse reaction ak1 23:00 Drug: Macrobid 100 mg Route: PO; ea 23:06 Follow up: Response: No adverse reaction; Medication administered at discharge. ea Disposition: 12/25/18 22:41 Discharged to Home. Impression: Hematemesis, First trimester of , Dehydration. - Condition is Stable. - Discharge Instructions: Dehydration, Adult, Hematemesis. - Prescriptions for Zofran ODT 4 mg Oral tablet,disintegrating - place 1 tablet by TRANSLINGUAL route every 8 hours; 10 tablet. Macrobid 100 mg Oral Capsule - take 1 capsule by ORAL route every 12 hours for 10 days; 20 capsule. - Medication Reconciliation Form, Thank You Letter, Antibiotic Education, Prescription Opioid Use form. - Follow up: Private Physician; When: As needed; Reason: Recheck today's complaints, Re-evaluation by your physician. - Problem is new. - Symptoms have improved. Signatures: Dispatcher [employer] EDMabel Carranza RN RN aj1 Vivien Arredondo RN Hay Brooks MD MD rn Antunez, Elena, RN RN ea Krenek, Amber RN ak1 Corrections: (The following items were deleted from the chart) 21:24 20:53 Zofran 4 mg PO once ordered. rn alvaro 21:24 21:09 Zofran 4 mg PO once given. ajDarren aj1 21:24 21:09 Zofran 4 mg PO once ordered. aj1 aj1 23:18 22:41 12/25/2018 22:41 Discharged to Home. Impression: Hematemesis; First trimester of ea ; Dehydration. Condition is Stable. Forms are Medication Reconciliation Form, Thank You Letter, Antibiotic Education, Prescription Opioid Use. Follow up: Private Physician; When: As needed; Reason: Recheck today's complaints, Re-evaluation by your physician. Problem is new. Symptoms have improved. rn
[2018-12-25 22:46] LABS: Urine Blood 1+ (NEG); Urine Glucose NEGATIVE (NEG); Urine Protein NEGATIVE (NEG); Urine Specific Gravity 1.015 (1.005-1.030)
[2018-12-25 23:00] LABS: Urine Amorphous Sediment 3+ /HPF (NONE SEEN); Urine Bacteria >50 /HPF (<20); Urine Culture Reflex Order NOT NEEDED; Urine RBC <5 /HPF (NONE SEEN)
[2018-12-25] MEDS ORDERED: NITROFURAN MACRO 100 MG CAP PO ONE (23:04)
[2018-12-25 23:25] VITALS: TEMP 98.2
[2018-12-25 23:26] VITALS: O2SAT 100
[2018-12-25 23:27] VITALS: BP 130/70
--- NOTE | 2018-12-26 08:09 | RAD REPORT ---
EXAM DESCRIPTION: US - Abdomen Exam Limited - 12/25/2018 9:57 pm CLINICAL HISTORY: ABD PAIN COMPARISON: No comparisons FINDINGS: The gallbladder demonstrates no gallstones. No pericholecystic fluid or gallbladder wall t hickening. The common bile duct is normal measuring 3 mm. The liver demonstrates no findings of intrahepatic biliary dilatation. IMPRESSION: Unremarkable examination.
--- NOTE | 2018-12-26 08:10 | RAD REPORT ---
EXAM DESCRIPTION: US - OB Limited - 12/25/2018 9:57 pm CLINICAL HISTORY: vomiting, abd pain COMPARISON: No comparisons FINDINGS: A single gestational sac is seen within the uterus. The shape of the sac is within normal limits for gestational age. Within the sac is a single pole with crown-rump length of 15 mm, co rrelating to estimated gestational age of 7 weeks 6 days. Estimated date of delivery is 08/07/2019. Heart rate is 153 BPM. The placenta is not yet developed due to early gestational age. The maternal adnexa and ovaries are within normal limits. Normal Doppler blood flow was demonstrated to both ovaries. IMPRESSION: Single live early intrauterine gestation with estimated gestational age of 7 weeks 6 day s, ROSY 08/07/2019. No unusual or unexpected finding.
== END 2018-12-25 23:18 | disposition home or self-care (01) ==
LOC: ER 20:14
DX: O21.8 Other vomiting complicating pregnancy (principal); K92.0 Hematemesis; Z3A.01 Less than 8 weeks gestation of pregnancy; F41.9 Anxiety disorder, unspecified; F32.9 Major depressive disorder, single episode, unspecified
CPT/HCPCS: 36415; 76705; 76815; 80048; 80076; 81003; 81015; 82271; 83690; 83986; 84702; 85025; 86900; 86901; 87086; 87088; 96361; 96374; 99284; J2405; J7030

== ENCOUNTER 2021-08-11 16:01 | Emergency (ER) | payer BC, SELFPAY ==
--- NOTE | 2021-08-11 17:04 | ER ---
Nurse's Notes [facility] Name: Jaymie Garduno Age: 21 yrs Sex: Female : 2000 Arrival Date: 08/11/2021 Time: 16:04 Bed 19 Private MD: Diagnosis: Strain of left Hamstring Presentation: 08/11 16:16 Chief complaint: Patient states: "I went to the ER for knee pain and they said I just aa5 strained my left knee but today my foot got swollen so I don't know". Pt denies injury to left foot. Pt ambulatory with crutches. Coronavirus screen: At this time, the client does not indicate any symptoms associated with coronavirus-19. Ebola Screen: Patient negative for fever greater than or equal to 101.5 degrees Fahrenheit, and additional compatible Ebola Virus Disease symptoms. Initial Sepsis Screen: Does the patient meet any 2 criteria? HR > 90 bpm. Does the patient have a suspected source of infection? No. Patient's initial sepsis screen is negative. Risk Assessment: Do you want to hurt yourself or someone else? Patient reports no desire to harm self or others. Onset of symptoms was August 2021. 16:16 Acuity: GABY 4 aa5 16:16 Method Of Arrival: Ambulatory aa5 Historical: - Allergies: 16:17 No Known Allergies; aa5 - PMHx: 16:17 Anxiety; Depression; heart problem; Kidney stones; aa5 - Immunization history:: Client reports having NOT received the Covid vaccine. - Social history:: Smoking status: Patient denies any tobacco usage or history of. Screenin:35 Abuse screen: Denies threats or abuse. Denies injuries from another. Nutritional tc5 screening: No deficits noted. Tuberculosis screening: No symptoms or risk factors identified. Fall Risk Fall in past 12 months (25 points). Assessment: 17:34 General: Appears in no apparent distress. Behavior is calm, cooperative, appropriate tc5 for age. Pain: Complains of pain in left knee, left [place], anterior aspect of left ankle and dorsum of left foot. Musculoskeletal: Reports she was dancing the other night and heard pop pop and down she went, had pain in the LLE. Vital Signs: 16:17 BP 145 / 100; Pulse 103; Resp 16 S; Temp 98.5(TE); Pulse Ox 98% on R/A; Weight 90.72 kg aa5 (R); Height 5 ft. 6 in. (167.64 cm) (R); 16:17 Body Mass Index 32.28 (90.72 kg, 167.64 cm) aa5 Abel Coma Score: 17:35 Eye Response: spontaneous(4). Verbal Response: oriented(5). Motor Response: obeys tc5 commands(6). Total: 15. ED Course: 16:04 Patient arrived in ED. ds1 16:16 Arm band placed on. aa5 16:17 Triage completed. aa5 16:27 Carlos Serna PA is PHCP. jr8 16:27 Rahul Umaña MD is Attending Physician. jr8 17:01 Sohail Krishnan MD is Referral Physician. jr8 17:27 Shanice Orellana RN is Primary Nurse. tc5 Administered Medications: No medications were administered Outcome: 17:04 Discharge ordered by MD. jr8 17:36 Discharged to home ambulatory, with crutches, pt has own crutches. tc5 17:36 Condition: stable 17:36 Discharge instructions given to patient. 17:36 Patient left the ED. tc5 Signatures: [place] ds1 Joyce Acosta, RN RN aa5 Carlos Serna PA PA jr8 Shanice Orellana, RN RN tc5 Corrections: (The following items were deleted from the chart) 16:17 16:17 Allergies: Morphine; aa5 aa5 16:18 16:16 Chief complaint: Patient states: "I went to the ER for knee pain and they said I aa5 just strained my left knee but today my foot got swollen so I don't know". Pt denies injury to left foot. aa5
--- NOTE | 2021-08-11 17:04 | EDPHYS ---
Physician Documentation [facility] Name: Jaymie Garduno Age: 21 yrs Sex: Female : 2000 Arrival Date: 08/11/2021 Time: 16:04 Bed 19 Private MD: ED Physician Rahul Umaña HPI: 08/11 20:14 This 21 yrs old Female presents to ER via Ambulatory with complaints of left jr8 leg pain. 20:15 The complaints affect the left hamstring. Modifying factors: The symptoms are jr8 alleviated by remaining still, the symptoms are aggravated by movement, weight bearing, bending knee. Associated signs and symptoms: The patient has no apparent associated signs or symptoms. Severity of symptoms: At their worst the symptoms were moderate, in the emergency department the symptoms are unchanged. The patient has not experienced similar symptoms in the past. The patient has been recently seen by a physician:. This is a 21-year-old female patient who presented to the emergency room with continued left hamstring pain. Patient stated that she was seen by another ER the other day and told that she had sprained her leg. Was put in an Evelio wrap and given crutches. Was sent home on Toradol. Patient stated that she continues to have pain and now has swelling and temperature differentiation between her left and right leg.. Historical: - Allergies: 16:17 No Known Allergies; aa5 - PMHx: 16:17 Anxiety; Depression; heart problem; Kidney stones; aa5 - Immunization history:: Client reports having NOT received the Covid vaccine. - Social history:: Smoking status: Patient denies any tobacco usage or history of. ROS: 20:15 Eyes: Negative for injury, pain, redness, and discharge, ENT: Negative for injury, jr8 pain, and discharge, Neck: Negative for injury, pain, and swelling, Cardiovascular: Negative for chest pain, palpitations, and edema, Respiratory: Negative for shortness of breath, cough, wheezing, and pleuritic chest pain, Abdomen/GI: Negative for abdominal pain, nausea, vomiting, diarrhea, and constipation, Back: Negative for injury and pain, Skin: Negative for injury, rash, and discoloration, Neuro: Negative for headache, weakness, numbness, tingling, and seizure. 20:15 MS/extremity: Positive for pain, swelling, tenderness, of the left hamstring. Exam: 20:15 Constitutional: This is a well developed, well nourished patient who is awake, alert, jr8 and in no acute distress. Cardiovascular: Regular rate and rhythm with a normal S1 and S2. No gallops, murmurs, or rubs. Normal PMI, no JVD. No pulse deficits. Respiratory: Lungs have equal breath sounds bilaterally, clear to auscultation and percussion. No rales, rhonchi or wheezes noted. No increased work of breathing, no retractions or nasal flaring. Skin: Warm, dry with normal turgor. Normal color with no rashes, no lesions, and no evidence of cellulitis. Neuro: Awake and alert, GCS 15, oriented to person, place, time, and situation. Cranial nerves II-XII grossly intact. Motor strength 5/5 in all extremities. Sensory grossly intact. 20:15 Musculoskeletal/extremity: Extremities: grossly normal except: noted in the left hamstring: Patient has mild swelling to the medial left hamstring. Moderate tenderness to palpation noted. Patient has a negative anterior and posterior drawer sign. Patient has a negative varus and valgus stress test. Patient has increasingly hard time flexing her left hamstring. Patient does have swelling down through the left calf but it without pain. Mild temperature difference when compared to the unaffected extremity. Patient does have 2+ pedal pulses and posterior tibial pulses. Normal sensation present. Remainder of extremities unremarkable.. Vital Signs: 16:17 BP 145 / 100; Pulse 103; Resp 16 S; Temp 98.5(TE); Pulse Ox 98% on R/A; Weight 90.72 kg aa5 (R); Height 5 ft. 6 in. (167.64 cm) (R); 16:17 Body Mass Index 32.28 (90.72 kg, 167.64 cm) aa5 Lyons Coma Score: 17:35 Eye Response: spontaneous(4). Verbal Response: oriented(5). Motor Response: obeys tc5 commands(6). Total: 15. MDM: 16:27 Patient medically screened. jr8 17:00 Data reviewed: vital signs, nurses notes, and as a result, I will discharge patient. jr8 Data interpreted: Pulse oximetry: on room air is 98 %. Interpretation: normal. Counseling: I had a detailed discussion with the patient and/or guardian regarding: the historical points, exam findings, and any diagnostic results supporting the discharge/admit diagnosis, the need for outpatient follow up, a orthopedic surgeon, to return to the emergency department if symptoms worsen or persist or if there are any questions or concerns that arise at home. ED course: This with patient and based on exam findings I am concerned that she may have a partial or complete hamstring tear. Recommended orthopedic follow-up and to continue to wrap ice and elevate the extremity. If she were to have worsening symptoms to come back for further evaluation. Patient good with this at this time.. Administered Medications: No medications were administered Disposition: 08/12 08:53 Co-signature as Attending Physician, Rahul Umaña MD I agree with the assessment and kdr plan of care. Disposition Summary: 08/11/21 17:04 Discharge Ordered Location: Home jr8 Problem: new jr8 Symptoms: have improved jr8 Condition: Stable jr8 Diagnosis - Strain of left Hamstring jr8 Followup: jr8 - With: Sohail Krishnan MD - When: 2 - 3 days - Reason: Recheck today's complaints, Continuance of care, Re-evaluation by your physician Discharge Instructions: - Discharge Summary Sheet jr8 - Hamstring Strain jr8 Forms: - Medication Reconciliation Form jr8 - Thank You Letter jr8 - Antibiotic Education jr8 - Prescription Opioid Use jr8 Prescriptions: - Tylenol-Codeine #3 300 mg-30 mg Oral - take 2 tablet by ORAL route every 8 hours As needed; 20 tablet; Refills: 0, jr8 Product Selection Permitted Signatures: Rahul Umaña MD MD [facility] Joyce Acosta RN RN aa5 Carlos Serna PA PA jr8 Corrections: (The following items were deleted from the chart) 08/11 16:17 16:17 Allergies: Morphine; jamin [email or web address]
[2021-08-11 17:41] VITALS: BP 145/100; TEMP 98.5; O2SAT 98
== END 2021-08-11 17:36 | disposition home or self-care (01) ==
LOC: ER 16:01
DX: S76.912A Strain of unspecified muscles, fascia and tendons at thigh level, left thigh, initial encounter (principal); X58.XXXA Exposure to other specified factors, initial encounter; Y93.9 Activity, unspecified
CPT/HCPCS: 99281

== ENCOUNTER 2022-11-05 16:58 | Emergency (ER) | payer OTHER ==
--- OUTSIDE RECORDS SUMMARY | 2022-11-05 17:01 | XMS REPORT | Continuity of Care Document ---
:2000 Author Organization [facility] t Address [address] [place] [address] Care Team Providers Name Role Phone PCP, PATIENT DOES NOT HAVE A Primary Care Physician UnavailAUDRA Dos Santos Attending Clinician Unavailable Audra Jacobson MD Attending Clinician Adilson Jackson Attending Clinician Unavailable Douglas Lo DO Attending Clinician DOUGLAS LO Attending Clinician Unavailable Gordy Bautista Attending Clinician Unavailable AUDRA JACOBSON Admitting Clinician Unavailable Physician, No Primary or Family Admitting Clinician UnavailGordy Han Admitting Clinician Unavailable Payers Payer Name Policy Type Policy Number Effective Date Expiration Date S ource Problems Condition Condition Condition Status Onset Resolution Last Treating Co mments Source Name Details Category Date Date Treatment Clinician Date No known No known Disease Unive rs active active ity of problems problems [facility] Allergies, Adverse Reactions, Alerts Allergy Allergy Status Severity Reaction(s) Onset Inactive Treating Comm ents Source Name Type Date Date Clinician MORPHINE DRUG Active SOB Univers INGREDI 8-23 ity of 00:00: 00 Medical Branch Morphine Propensi Active Shortness of Univers ty to Breath 8-23 ity of adverse 00:00: [place] reaction 00 Medical s Branch morphine DA Active SV I STOP [facility] BREATHING 3-24 [place] 00:[facility]: d [facility] morphine DA Active SV 2018- [facility] 3-24 [place] 00:[facility]: d [facility] No Known DA Active U 2010- [facility] Allergie 7-08 [place] [facility] 00:00: Regiona 00 l [facility] NO KNOWN Drug Active Univers ALLERGIE Class ity of S [place] [facility] [place] Social History Social Habit Start Date Stop Date Quantity Comments Source Exposure to 2022-06-13 2022-06-23 Not sure [facility] SARS-CoV-2 (event) 00:00:00 19:41:00 Medica l Branch Sex Assigned At [birth year] [facility] y of [place] 00:00:00 00:00:00 Medical Branch Smoking Status Start Date Stop Date Source Tobacco smoking consumption Univ [facility] Medical unknown Branch Medications Ordered Filled Start Stop Current Ordering Indication Dosage Frequency Signature Comments Components Source Medication Medication Date Date Medication? Clinician (SIG) Name Name HYDROcodone Yes 1{tbl} 1 tablet, Univers -acetaminop 8-24 Oral, ity of hen (NORCO) 02:19: Q6HPRN, Nixon as 10-325 mg 27 Starting Medica l tablet 1 on Wed Branch tablet 06/23/22 at 2119, Until Discontinu ed, Routine, Pain (scale 7-10) naproxen Yes [id number] 550mg Take 1 U nivers sodium 550 8-23 tablet by ity of mg tablet 00:[place] the Medical morning Branch and 1 tablet in the evening. Take with meals. levoFLOXaci 0 Yes [id number] 500mg Take 1 Univers n 8-23 tablet by ity of (LEVAQUIN) 00:00: mouth [place] 500 mg 00 every 24 Medical tablet (twenty-fo Branch ur) hours. methocarbam 0 Yes [id number] 500mg Take 1 Univers oL 500 mg 8-23 tablet by ity o f tablet 00:00: mouth [place] 00 every 6 Medical (six) Branch hours as needed for Pain (scale 7-10). Vital Signs Vital Name Observation Time Observation Value Comments Source Systolic blood 2022-06-24 04:00:00 122 mm[Hg] Univer sity of pressure [place] [facility] Diastolic blood 2022-06-24 04:00:00 81 mm[Hg] Unive rsity of pressure [place] [facility] Heart rate 2022-06-24 04:00:00 68 /min Universi ty [facility] [place] [facility] Respiratory rate 2022-06-24 04:00:00 20 /min Univ ersity of [place] [facility] Oxygen saturation in 2022-06-24 04:00:00 100 /min University of Arterial blood by [facility] Pulse oximetry Branch Body temperature 2022-06-24 00:44:00 36.72 Alejandra Univ ersity [facility] [place] [facility] Body height 2022-06-24 00:44:00 167.6 cm [facility] [place] [facility] [place] Body weight 2022-06-24 00:44:00 94.802 kg [facility] [place] [facility] BMI 2022-06-24 00:44:00 33.73 kg/m2 [facility] [place] [facility] Systolic blood 2021-05-25 14:05:00 150 mm[Hg] Univer sity of [facility] Medical Branch Diastolic blood 2021-05-25 14:05:00 86 mm[Hg] Unive rsity of pressure [place] [facility] Heart rate 2021-05-25 14:05:00 107 /min [facility] [place] [facility] Body temperature 2021-05-25 14:05:00 37.56 Alejandra Univ [facility] [place] [facility] Respiratory rate 2021-05-25 14:05:00 18 /min Univ [facility] [place] [facility] Body height 2021-05-25 14:05:00 167.6 cm [facility] [place] [facility] Body weight 2021-05-25 14:05:00 93.895 kg [facility] [place] [facility] BMI 2021-05-25 14:05:00 33.41 kg/m2 [facility] [place] [facility] Oxygen saturation in 2021-05-25 14:05:00 99 /min University of Arterial blood by [facility] Pulse oximetry Branch Procedures Procedure Date / Time Performed Performing Clinician Sourc e XR CHEST 1 VW 2022-06-24 02:54:00 Audra Jacobson [facility] XR FOREARM 2 VW LEFT 2022-06-24 02:54:00 [facility] 2022-06-24 02:53:58 Audra Jacobson [facility] CONTRAST Medical Branch CT HEAD WO CONTRAST 2022-06-24 02:53:58 Audra Jacobson [facility] CT LUMBAR SPINE WO 2022-06-24 02:53:58 Audra Jacobson [facility] CONTRAST Medical Branch CT THORACIC SPINE WO 2022-06-24 02:53:58 Audra Jacobson [facility] CONTRAST Medical Branch POCT TEST 2022-06-24 02:17:00 Audra Jacobson [facility] URINALYSIS 2022-06-24 00:50:00 Audra Jacobson [facility] NOTICE OF PRIVACY 2022-06-24 00:36:00 Doctor Unassigned, No [facility] CONSENT/REFUSAL FOR 2022-06-24 00:35:07 Doctor Unassigned, No [facility] [place] DIAGNOSIS AND Name Medical Branch TREATMENT BASIC METABOLIC PANEL 2021-05-25 14:55:00 Singer Douglas [facility] (NA, K, CL, CO2, Medical Branch GLUCOSE, BUN, CREATININE, CA) CBC WITHOUT DIFF 2021-05-25 14:55:00 Singer [facility] URINALYSIS 2021-05-25 14:55:00 Singer [facility] POCT TEST 2021-05-25 14:17:00 Douglas Lo [facility] NOTICE OF PRIVACY 2021-05-25 13:56:43 Doctor Unassigned, No [facility] CONSENT/REFUSAL FOR 2021-05-25 13:56:29 Doctor Unassigned, No [facility] AND Name Medical Branch TREATMENT Encounters Start End Encounter Admission Attending Care Care Encounter Source Date/Time Date/Time Type Type Clinicians Facility Department ID 2022-06-23 2022-06-23 Emergency X BRIAN NCJASON ERT [id number] Univers 19:48:00 23:09:00 [facility] 2022-06-23 2022-06-23 [facility] [id number] Univers 19:48:00 23:09:00 Audra ODONNELL [id number] itnicole [facility] 4.2.7.2.686 [facility] [id number] [address] 2021-08-10 2021-08-10 Inpatient EM VIOLA JacksonKW [facility] [id number] [facility] 00:05:00 01:05:00 Adilson 77 [facility] 2021-05-25 2021-05-25 Emergency [facility] [id number] Univers 09:06:00 10:36:00 Douglas Darlene 350.1.13.10 carrie [facility] 4.2.7.2.686 [facility] [id number] [address] 2021-05-25 2021-05-25 Emergency [facility] [id number] Univers 09:06:00 09:06:00 DOUGLAS dale [facility] 2019-01-23 2019-01-24 Inpatient EM Lily [facility] [id number] [facility] 12:46:00 17:10:00 Gordy Lofton [facility] Results Test Description Test Time Test Comments Results Result Comments Source POCT TEST 2022-06-24 02:17:00 Test Item Value Reference Range Interpretation Comme nts POCT PREG (test code = 1605) - On board controls acceptable with C Line (test code = 3574) yes POCT PREG LOT # (test code = 3575) [id number] POCT PREG TEST DATE (test code = 3576) 08/31/2023 Lab Interpretation (test code = 21447-3) Normal [facility]- XR FEMUR MIN 2 VW [id number] 00:47:00 [facility] 2000 Sex: F FAX: Adilson Jackson MD [phone] [place]: St: REG Name: KAITLIN COREY [place] : 2000 Age/S: 21/F [address] [facility] Unit #: [id number] Loc: [place] [address] Phys: Adilson Jackson MD Acct: [id number] Dis Date: Status: REG ER PHONE #: Exam Date: 08/10/2021 0028 FAX #: Reason: TRAUMA EXAMS: CPT CODE: [id number] XR FEMUR MIN [address] [place] [address] DICTATION LOCATION: [facility] HISTORY: Female, 21 years of age withleft leg pain secondary to trauma EXAM: LEFT FEMUR, 2 VIEWS COMPARISON: None FINDINGS: No significant soft tissue swelling or arthropathy. No fracture, dislocation, periosteal reaction, osteolytic or osteoblastic lesion. IMPRESSION: No acute osseous abnormality. at 0047 Reported and signed by: Madison Ascencio MD CC: Adilson Jackson MD Technologist: PHILOMENA Dow RT (R,CT) Trnsaint joseph berea Date/Time/By: 08/10/2021 (0047) : By: LeenaCLW PAGE 1Signed Report FAX: Adilson Jackson MD [phone] [place]: St: REG Name: KAILTIN COREY : 2000 Age/S:[address] [facility] Unit #: [id number] [place]: [place] [address] Phys: Tonny Jackson MD Acct: [id number] Dis Date: Status: REG ER PHONE #: Exam Date: 08/10/2021 0028 FAX #: Reason: TRAUMA EXAMS: CPT CODE: [id number] XR FEMUR MIN [address] [place] [address] <Continued> Orig Print D/T: S: 08/10/2021 (0050) PAGE 2 Signed Report- XR KNEE 3 V [id number] 00:44:00[facility] : 2000 Sex: F FAX: Adilson Jackson MD [phone] [place]: St: REG Name: KAITLIN COREY : 2000 Age/S: [address] [facility] Unit #: [id number] Loc: [place], [place] [address] Phys: Adilson Jackson MD Acct: [id number] Dis Date: Status: REG ER PHONE #: Exam Date: 08/10/202127 FAX #: Reason: TRAUMA EXAMS: CPT CODE: [id number] XR KNEE 3 V LT [address] EXAM: - XR KNEE 3 V LT LOCATION: H57 HISTORY: 21 years-year old Female with TRAUMA COMPARISON: None available time of interpretation. FINDINGS: Frontal, oblique, andlateral views of the left knee are provided. No acute fracture or malalignment. No significant knee joint effusion. No soft tissue findings are apparent. IMPRESSION: No acute fracture. at 0044 Reported and signed by: Gavino Hall MD CC:Adilson Jackson MD Technologist: PHILOMENA Dow RT (R,CT) Trnlard Date/Time/By: 08/10/2021 (0044) : By: [email or web address] PAGE 1 Signed Report FAX: Adilson Jackson MD [phone] [place]: St: REG Name: KAITLIN COREY [place] : 2000 Age/S: 21/F [address] [facility] Unit #: [id number] Loc: [place], [place] [address] Phys: Adilson Jackson MD Acct: [id number] Dis Date: Status: REG ER PHONE #: Exam Date: 08/10/202127 FAX #: Reason: TRAUMA EXAMS: CPT CODE: [id number] XR KNEE 3 V LT [address] <Continued> Orig Print D/T: S: 08/10/2021 (0047) PAGE 2 Signed Report [id number] 15:16:27 Test Item Value Reference Range Interpretation Comments APPEARANCE (test code = Hazy Clear A 2950723696) COLOR (test code = Yael Yellow A 5852253540) PH (test code = 4.8-8.0 3790811806) SP GRAVITY (test code = 1.003-1.030 H 4260005283) GLU U QUAL (test code = Normal Normal 0479961306) BLOOD (test code = 1+ Negative A 9082160454) KETONES (test code = Negative Negative 8674459825) PROTEIN (test code = 30 mg/dL Negative A 2887-8) UROBILIN (test code = Normal Normal 8872085239) BILIRUBIN (test code = Negative Negative 8197223404) NITRITE (test code = Negative Negative 5122916097) LEUK NASIR (test code = Negative Negative 7978565803) RBC/HPF (test code = See_Comment H [Autom ated message] 0023438083) The system [employer] generated this result transmitted ref erence range: 0 - 3 HP F. The reference range was not used to int erpret this result as normal/abnormal . WBC/HPF (test code = See_Comment [Autom ated message] 4604371987) The system [employer] generated this result transmitted ref erence range: 0 - 5 HP F. The reference range was not used to int erpret this result as normal/abnormal . BACTERIA (test code = Negative Negative 3544774581) MUCOUS (test code = Marked Negative LPF A 6306769456) SQ EPITH (test code = HPF 4488475374) Lab Interpretation (test Abnormal code = 21557-2) [facility] (NA, K, CL, CO2, GLUCOSE, BUN, CREATININE, CA)2021-05-25 15:12:16 Test Item Value Reference Range Interpretation Comments NA (test code = 139 mmol/L 135-145 9902502419) K (test code = 3.9 mmol/L 3.5-5.0 7469399544) CL (test code = 104 mmol/L 98-108 1843901923) CO2 TOTAL (test code 23 mmol/L 23-31 = 3696898557) AGAP (test code = 2-16 6709686638) BUN (test code = 13 mg/dL 7-23 2620886781) GLUCOSE (test code = 98 mg/dL 70-110 5633995168) CREATININE (test code 0.86 mg/dL 0.50-1.04 = 2129615270) CALCIUM (test code = 9.5 mg/dL 8.6-10.6 4547160330) eGFR (test code = mL/min/1.73m2 8390581883) TIAN (test code = TIAN) Association of Glomerular Filtration Rate (GFR) and Staging of Kidney Disease* + + +- +| GFR (mL/min/1.73 m2) ?| With Kidney Damage ?| ?Without Kidney Damage+ ------+ ----+ ------+| ?>90 ?| ?Stage one ?| ? Normal ?+ -+ + -+| ?60-89 ?| ?Stage two ?| ? Decreased GFR ? + + +- +| ?30-59 ?| ?Stage three ?| ? Stage three ? + + +- +| ?15-29 ?| ?Stage four ? | ? Stage four ?+ -+ + -+| ?<15 (or dialysis) ? ?| ?Stage five ? | ? Stage five ?+ -+ + -+ *Each stage assumes the associated GFR level has been in effect for at least three months. ?Stages 1 to 5, with or without kidney disease, indicate chronic kidney disease. Notes: Determination of stages one and two (with eGFR >59mL/min/1.73 m2) requires estimation of kidney damage for at least three months as defined by structural or functional abnormalities of the kidney, manifested by either:Pathological abnormalities or Markers of kidney damage (including abnormalities in the composition of the blood or urine or abnormalities in imaging tests). General acute hospital WITHOUT [id number] 15:00:14 Test Item Value Reference Range Interpretation Comments WBC (test code = See_Comment [Automated message] The 6690-2) system which ge nerated this result tra nsmitted reference range : 4.30 - 11.10 10*3/?L. The reference range was not used to interpr et this result as normal/abnormal . RBC (test code = See_Comment [Automated message] The 789-8) system which nerated this result tra nsmitted reference range : 3.93 - 5.25 10*6/?L. T he reference range was not used to interpr et this result as normal/abnormal . HGB (test code = 13.9 g/dL 11.6-15.0 718-7) HCT (test code = 41.2 % 35.7-45.2 4544-3) MCH (test code = 29.0 pg 25.9-32.8 785-6) MCV (test code = 85.8 fL 80.6-95.5 787-2) MCHC (test code = 33.7 g/dL 31.6-35.1 786-4) PLT (test code = See_Comment [Automated message] The 777-3) system which nerated this result tra nsmitted reference range : 166 - 358 10*3/?L. Th e reference range was not used to interpr et this result as normal/abnormal . MPV (test code = 10.6 fL 9.5-12.9 16543-4) RDW-CV (test code = 12.5 % 12.0-15.5 788-0) RDW-SD (test code = 39.2 fL 39.0-49.9 45009-4) NRBC x10^3 (test <0.01 See_Comment [Automated message] The code = 6971577026) system [facility] generated this result tra nsmitted reference range : 10*3/?L. The reference r deacon was not used to int erpret this result as normal/abnormal . NRBC/100 WBC (test See_Comment [Automat ed message] The code = 0949778678) system [facility] generated this result tra nsmitted reference range : 0.0 - 10.0 /100 WBCs. The reference range was not used to interpr et this result as normal/abnormal . IPF % (test code = 3808581461) [facility] [id number] 14:17:00 Test Item Value Reference Range Interpretation Comments POCT PREG (test code = 1605) negative On board controls acceptable with C present Line (test code = 3574) Lab Interpretation (test code = Normal 06972-8) [facility]ORT[facility] [id number] 10:53:00 Test Item Value Reference Range Interpretation Comments CORTISOL AM (test code = CORTAM) 17.69 mcG/DL 3.44-22.40 N THYROID STIMULATING [id number] 10:42:00 Test Item Value Reference Range Interpretation Comments THYROID STIMULATING HORMONE 1.590 mcIU/ML 0.340-4.820 N (test code = TSH) PROCALCITONIN (PCT)2019-01-23 01:57:00 Test Item Value Reference Range Interpretation Comments PROCALCITONIN (PCT) < 0.05 NG/ML 0.00-0.10 N PROCALCI TONIN (PCT) (test code = PROCAL) NORMAL RANGE (ADULT) <0.05 NG/ML-nor mal <0.50 NG/ML-low risk of severe sepsis a nd/or septic shock >2 .00 NG/ML-high risk of severe sepsis a nd/or septic shcock Concentrations of <0.5 ng/mL do not ex clude an infection.Local ized infections (wit hout systemic signs) or a systemicinfecti on in its initial sta ges (<6 hours) can be associatedwith such low concentrations. It is recommended to retestPCT withi n 6-24 hours if concen trations <2 NG/ML. Specimen comments: SEPSIS WORKUPLACTIC ACID [id number] 23:34:00 Test Item Value Reference Range Interpretation Comments LACTIC ACID POC (test code = 0.72 MMOL/L i 0.40-2.00 N LACTP) URINALYSIS [id number] 21:39:00 Test Item Value Reference Range Interpretation Comments UA COLOR (test code = DK YELLOW DESCRIPT YELLOW COLU) UA APPEARANCE (test code CLOUDY DESCRIPT CLEAR A = APPU) UA GLUCOSE DIPSTICK (test NEGATIVE (0) mg/dL (NEG) 0 code = DGLUU) UA BILIRUBIN DIPSTICK NEGATIVE (0) mg/dL (NEG) 0 (test code = BILU) UA KETONE DIPSTICK (test 2+ (>40 mg/dL) mg/dL (NEG) 0 A code = KETU) UA SPECIFIC GRAVITY (test 1.027 SG 1.001-1.035 code = SGU) UA BLOOD DIPSTICK (test 0.20-0.50 (2+) mg/DL (NEG) 0 A code = MACRINA) UA PH DIPSTICK (test code 6.0 pH UNITS 4.6-8.0 = JO ANN) UA PROTEIN DIPSTICK (test 100 (2+) mg/dL <30 (1+) A code = PROU) UA UROBILINIOGEN DIPSTICK NORMAL (0) mg/Dl <2.0 (1+) (test code = URO) UA NITRITE DIPSTICK (test NEGATIVE (0) SCREEN NEG code = ALFREDO) UA LEUKOCYTE ESTERASE 500 (3+) Leuk/mcL (NEG) 0 A DIPSTICK (test code = LEUU) UA WBC (test code = WBCU) 30-40 #WBC/HPF 0-3 A UA RBC (test code = RBCU) 40-50 #RBC/HPF 0-3 A UA BACTERIA (test code = MANY /HPF NONE-FEW A BACU) UA SQUAMOUS CELLS (test MANY >20 /HPF NONE-SQepi code = SQU) UA MUCUS (test code = MANY /LPF NONE A MUCU) - US ABDOMEN [id number] 20:57:00 Patient Name: KAITLIN COREY Unit No: [id number] EXAMS: CPT CODE: [id number] US ABDOMEN [facility] [id number] Site ID: [id number] Abdominal ultrasound, limited (Right upper quadrant) HISTORY: Right upper quadrant pain FINDINGS: The gallbladder is normally distended, with no evidence of gallbladder wall thickening, intraluminal stones or pericholecystic fluid. Sonographic Borjas sign is negative. The liver is normal in size and echotexture. Hepatopedal flow is visualized in the main portal vein. The common bile duct appears normal measuring 0.4 cm in size. There is no intra or extrahepatic biliary dilatation. The pancreas is not well seen due to overlying bowel gas. The right kidney measures 10.8 x 4.9 cm. No hydronephrosis visualized. IMPRESSION: Negative right upper quadrant ultrasound. at 2056 Reported and signed by: Vni Love M.D. CC: Carolina Xiong NP Technologist: Wilson Tijerina RDMS Trnscrbd D/ (2056) [email or web address] Orig Print D/T: S: 01/22/2019 (2100) Probe: MARCO Flor NAME: KAITLIN COREY [address] [place] [address] Blvd PHYS: Carolina Rivas NP [place], [place] [address] : 2000 AGE: 18 SEX: F LOC: [facility] PHONE #: [phone] EXAM DATE: 01/22/2019 STATUS: REG ER FAX #: [phone] RAD NO: Page 1 Signed ReportBASIC METABOLIC PANEL 2019-01-22 20:23:00 Test Item Value Reference Range Interpretation Comments SODIUM (test code = 137.0 mmol/L 133-144 N NA) POTASSIUM (test code 3.8 mmol/L 3.5-5.1 N = K) CHLORIDE (test code 105 mmol/L 95-105 N = CL) CARBON DIOXIDE (test 20 mmol/L 21-32 L code = CO2) ANION GAP (test code 12.0 GAP calc 4.0-15.0 N = GAP) GLUCOSE (test code = 93 MG/DL 70-110 N GLU) BLOOD UREA NITROGEN 9 MG/DL 7-18 N (test code = BUN) CREATININE (test 0.76 MG/DL 0.55-1.30 N Results may be code = CREAT) depressed if patient is takingN-Acetylc yste ine (NAC) and Metamizole (Dipyrone). CALCIUM (test code = 9.4 MG/DL 8.5-10.1 N CA) INDEX HEMOLYSIS 2 TRACE 10-25 1 NORMAL (test code = MG Index/DL HEMINDEX) INDEX ICTERIC (test 1 NORMAL <2 MG 1 NORMAL code = ICTINDEX) Index/DL INDEX LIPEMIA (test 1 NORMAL <50 MG 1 NORMAL code = LIPINDEX) Index/DL HCG [id number] 20:23:00 Test Item Value Reference Range Interpretation Comments HCG SERUM (test 62133 mi-IU/ML 0-3 H HCG RANGE S DURING code = HCG) NORMAL PREGNANC YPOST LMP 3-4 WEEKS 9 - 130 MIU/ML4-5 WEEKS 75 - 2,600 MIU/ML5-6 WEEKS 850 - 20,800 SD U/ML6-7 WEEKS 4,000 - 1 00,200 MIU/ML7-12 WEEK S 11,500 - 289,000 MIU/M L12-16 WEEKS 18,300 - 137,000 MIU/ML16-29 WEE KS 1,400 - 53,000 MIU/ML 29-41 WEEKS 940 - 60, 000 MIU/ML BASIC METABOLIC [id number] 20:13:00 Test Item Value Reference Range Interpretation Comments SODIUM (test code = 137.0 mmol/L 133-144 N NA) POTASSIUM (test code 3.8 mmol/L 3.5-5.1 N = K) CHLORIDE (test code 105 mmol/L 95-105 N = CL) CARBON DIOXIDE (test 20 mmol/L 21-32 L code = CO2) ANION GAP (test code 12.0 GAP calc 4.0-15.0 N = GAP) GLUCOSE (test code = 93 MG/DL 70-110 N GLU) BLOOD UREA NITROGEN 9 MG/DL 7-18 N (test code = BUN) CREATININE (test 0.76 MG/DL 0.55-1.30 N Results may be code = CREAT) depressed if patient is takingN-Acetylc yste ine (NAC) and Metamizole (Dipyrone). CALCIUM (test code = 9.4 MG/DL 8.5-10.1 N CA) INDEX HEMOLYSIS 2 TRACE 10-25 1 NORMAL (test code = MG Index/DL HEMINDEX) INDEX ICTERIC (test 1 NORMAL <2 MG 1 NORMAL code = ICTINDEX) Index/DL INDEX LIPEMIA (test 1 NORMAL <50 MG 1 NORMAL code = LIPINDEX) Index/DL HCG [id number] 20:13:00 Test Item Value Reference Range Interpretation Comments HCG SERUM (test code = HCG) mi-IU/ML 0-3 CBC W/O [id number] 19:50:00 Test Item Value Reference Range Interpretation Comments WHITE BLOOD CELL (test code = WBC) 12.2 K/mm3 4.1-12.1 H RED BLOOD CELL (test code = RBC) 5.01 M/mm3 3.8-5.5 N HEMOGLOBIN (test code = HGB) 15.3 G/DL 10.6-15.8 N HEMATOCRIT (test code = HCT) 43.4 % 31.8-47.4 N MEAN CELL VOLUME (test code = MCV) 86.6 fL 80.1-101.1 N MEAN CELL HGB (test code = MCH) 30.5 pg 25.3-35.3 N MEAN CELL HGB CONCETRATION (test 35.3 G/DL 32.7-35.1 H code = MCHC) RED CELL DISTRIBUTION WIDTH (test 12.4 % 12.2-16.4 N code = RDW) PLATELET COUNT (test code = PLT) 330 K/mm3 155-337 N MEAN PLATELET VOLUME (test code = 10.8 fL 6.8-11.2 N MPV) - US PREG EVAL 1ST [id number] 19:04:00 Patient Name: KAITLIN COREY Unit No: [id number] EXAMS: CPT CODE: [id number] US PREG EVAL 1ST TRIMTR 08855 HISTORY: Female, 18 years of age with pelvic pain during 1st trimester . Establish duedate 07/29/2019, gestational age by dates 13 weeks 1 days. Location code: R16 EXAM: TRANSABDOMINAL PELVIC OB ULTRASOUND COMPARISON: None TECHNIQUE: Transabdominal scans with color and pulse wave Doppler interrogation were performed. FINDINGS: UTERUS: The uterus is gravid measuring 11.5 x 6.7 x 7.8 cm. There is a single intrauterine gestational sac with single fetus. There is a small 1.5 x 0.5 x 1.3 cm subchorionic hemorrhage. No myometrial masses are seen. heart beats were seen at a rate of 168 BPM. Average sonographic age is 12 weeks 2 days with ROSY of 08/04/2019 based on the following: Mean sac diameter: Not measured Mean crown rump length: 5.77 cm at 12 weeks 2 days RIGHT OVARY: Not seen. LEFT OVARY: 3.0 x 1.9 x 2.8 cm No discrete left ovarian mass. Ovarian blood flow documented with Doppler. OTHER: No complex adnexal mass. No free fluid in cul-de-sac. IMPRESSION: 1. Single living intrauterine fetus at 12 weeks 2 days sonographic age. Ultrasound age slightly less than dates. 2. Small sub chorionic hemorrhage. 3. No evidence for ectopic . at 1904 Reported and signed by: Madison Ascencio MD CC: Sussy Alicia NP Technologist: Demetress Tijerina, RDMS Trnscrbd D/ (1903) PanchitoW Orig Print D/T: S: 01/22/2019 (1906) Probe: MARCO Flor NAME: HOMERO [address] PHYS: Sussy Li NP, [place] [address] : 2000 AGE: 18 SEX: F LOC: [facility] PHONE #: [phone] EXAM DATE: 01/22/2019 STATUS: PRE ER FAX #: [phone] RAD NO: Page 1 Signed Report"
[2022-11-05 17:49] LABS: Urine Blood 3+ (Negative); Urine Glucose Negative (Negative); Urine Protein 1+ (Negative); Urine Specific Gravity >=1.030 (1.005-1.030); Urine pH 5.5 (5.0-7.0)
[2022-11-05 17:52] LABS: Absolute Lymphocytes (CBC) 1.2 K/uL (0.7-4.9); Hematocrit 41.5 % (36.0-45.0); Lymphocytes % 29.5 % (15.3-44.8); MCV 88.8 fL (80-100); MPV 8.6 fL (7.6-11.3); RBC Red Blood Cell Count 4.68 M/uL (3.86-4.86)
[2022-11-05 18:05] LABS: Urine Bacteria 20-50 /HPF (<20); Urine Mucus 1+ /HPF (None Seen)
[2022-11-05 18:11] LABS: Albumin 4.1 g/dL (3.4-5.0); Bilirubin Total 0.5 mg/dL (0.2-1.0); Protein, Total 7.9 g/dL (6.4-8.2)
--- NOTE | 2022-11-05 19:31 | RAD REPORT ---
EXAM DESCRIPTION: CTAbdomen Pelvis W Contrast - 11/05/2022 6:57 pm CLINICAL HISTORY: Abdominal pain. hematuria COMPARISON: Stone Protocol dated 11/05/2022 TECHNIQUE: Biphasic CT imaging of the abdomen and pelvis was performed with 100 ml non-ionic IV cont rast. All CT scans are performed using dose optimization technique as appropriate and may include automated exposure control or mA/KV adjustment according to patient size. FINDINGS: The lung bases are clear. The liver, spleen, pancreas, adrenal glands and kidneys are within normal limits. No bowel obstruction, free air, free fluid or abscess. The appendix is normal. No evidence of signi ficant lymphadenopathy. No suspicious bony findings. IMPRESSION: No acute intra-abdominal or pelvic finding.
--- NOTE | 2022-11-05 20:26 | EDPHYS ---
Physician Documentation [facility] Name: Jaymie Garduno Age: 22 yrs Sex: Female : 2000 Arrival Date: 11/05/2022 Time: 16:59 Bed 30 Private MD: ED Physician Gerry Benitez HPI: 11/05 17:14 This 22 yrs old Female presents to ER via Ambulatory with complaints of Blood In Urine. jmm 17:14 The patient presents with urinary symptoms. Onset: The symptoms/episode began/occurred jmm acutely. Is a 22-year-old female with history of anxiety and previous kidney stones the presents emerged department with blood in her urine. Denies any pain. Denies flank pain, denies vomiting or fever. Patient was evaluated outpatient with a negative CT stone protocol. Patient states she had another gush of blood in her urine and decided to go to the ER for further evaluation.. Historical: - Allergies: 17:04 Morphine; ll1 - PMHx: 17:04 heart problem; Depression; Anxiety; Kidney stones; ll1 - PSHx: 17:04 kidney stone removal; ll1 - Immunization history:: Client reports having NOT received the Covid vaccine. - Social history:: Smoking status: Patient denies any tobacco usage or history of. ROS: 17:14 Constitutional: Negative for fever, chills, and weight loss, Cardiovascular: Negative jmm for chest pain, palpitations, and edema, Respiratory: Negative for shortness of breath, cough, wheezing, and pleuritic chest pain. 17:14 : Positive for urinary symptoms, hematuria. 17:14 All other systems are negative. Exam: 17:14 Constitutional: This is a well developed, well nourished patient who is awake, alert, jmm and in no acute distress. Head/Face: atraumatic. Eyes: EOMI, no conjunctival erythema appreciated ENT: Moist Mucus Membranes Neck: Trachea midline, Supple Chest/axilla: Normal chest wall appearance and motion. Cardiovascular: Regular rate and rhythm. No edema appreciated Respiratory: Normal respirations, no respiratory distress appreciated Abdomen/GI: Non distended Back: Normal ROM Skin: General appearance color normal MS/ Extremity: Moves all extremities, no obvious deformities appreciated, no edema noted to the lower extremities Neuro: Awake and alert Psych: Behavior is normal, Mood is normal, Patient is cooperative and pleasant Vital Signs: 17:03 BP 150 / 109; Pulse 106; Resp 17; Temp 99.0; Pulse Ox 99% ; Weight 90.72 kg; Height 5 ll1 ft. 7 in. (170.18 cm); Pain 8/10; 20:44 BP 114 / 72; Pulse 73; Resp 16; Pulse Ox 100% on R/A; em6 17:03 Body Mass Index 31.32 (90.72 kg, 170.18 cm) ll1 MDM: 17:14 Patient medically screened. [facility] 20:24 Data reviewed: vital signs, nurses notes. Counseling: I had a detailed discussion with audie the patient and/or guardian regarding: the historical points, exam findings, and any diagnostic results supporting the discharge/admit diagnosis, lab results, radiology results, the need for outpatient follow up, to return to the emergency department if symptoms worsen or persist or if there are any questions or concerns that arise at home. ED course: Patient is alert nontoxic in appearance in the ED. Urinalysis appears consistent with urinary tract infection. CT with contrast was negative for any acute process. I was suspicious for hemorrhagic cystitis. Patient advised to follow-up with urology if bleeding continues and otherwise given strict return precautions. Patient understood and agrees plan of care. 11/05 17:14 Order name: CBC with Diff; Complete Time: 18:10 [facility] 11/05 17:14 Order name: CMP; Complete Time: 18:11 [facility] 11/05 17:14 Order name: Lipase; Complete Time: 18:11 [facility] 11/05 17:14 Order name: Urine Microscopic Only; Complete Time: 18:10 [facility] 11/05 17:49 Order name: Urine Dipstick-Ancillary; Complete Time: 17:51 [facility] 11/05 18:13 Order name: Urine Culture [facility] 11/05 17:14 Order name: IV Saline Lock; Complete Time: 18:05 [facility] 11/05 17:14 Order name: Labs collected and sent; Complete Time: 18:05 [facility] 11/05 17:14 Order name: Urine Dipstick-Ancillary (obtain specimen); Complete Time: 18:05 [facility] 11/05 17:14 Order name: Urine Test (obtain specimen); Complete Time: 18:05 [facility] 11/05 17:14 Order name: CT Abd/Pelvis - IV Contrast Only; Complete Time: 19:36 [facility] Administered Medications: 20:24 Drug: Rocephin (cefTRIAXone) 1 grams Route: IV; Rate: calculated rate; Site: left em6 antecubital; 20:45 Follow up: Response: No adverse reaction; IV Status: Completed infusion; IV Intake: [id number] Disposition: 11/06 08:49 Co-signature as Attending Physician, Gerry Benitez DO I was immediately available on-site ms3 in the Emergency Department for consultation in the care of the patient. Disposition Summary: 11/05/22 20:26 Discharge Ordered Location: Home [facility] Condition: Stable [facility] Diagnosis - Hemorrhagic cystitis [facility] Followup: [facility] - With: Private Physician - When: 2 - 3 days - Reason: Recheck today's complaints, Continuance of care, Re-evaluation by your physician Followup: [facility] - With: Albino Her MD - When: 2 - 3 days - Reason: Recheck today's complaints, Continuance of care, Re-evaluation by your physician Discharge Instructions: - Discharge Summary Sheet [facility] - Hemorrhagic Cystitis [facility] Forms: - Medication Reconciliation Form [facility] - Thank You Letter [facility] - Antibiotic Education [facility] - Prescription Opioid Use [facility] Prescriptions: - cefpodoxime 200 mg Oral Tablet - take 1 tablet by ORAL route every 12 hours for 10 days with food; 20 tablet; [facility] Refills: 0, Product Selection Permitted Signatures: Dispatcher [employer] Jorge Castillo PA PA jmm Lewis, Lynsay, RN RN ll1 Gerry Benitez DO DO ms3 Norma Viveros RN RN em6
--- NOTE | 2022-11-05 20:26 | ER ---
Nurse's Notes [facility] Name: Jaymie Garduno Age: 22 yrs Sex: Female : 2000 Arrival Date: 11/05/2022 Time: 16:59 Bed 30 Private MD: Diagnosis: Hemorrhagic cystitis Presentation: 11/05 17:03 Chief complaint: Patient states: Dysuria since Wednesday. Blood in urine for [address] scan here 1 hour [employer] outpatient. Coronavirus screen: Vaccine status: Patient reports being unvaccinated. Client denies travel out of the [place] in the last 14 days. At this time, the client does not indicate any symptoms associated with coronavirus-19. Ebola Screen: Patient denies travel to an Ebola-affected area in the 21 days before illness onset. Initial Sepsis Screen: Does the patient meet any 2 criteria? No. Patient's initial sepsis screen is negative. Does the patient have a suspected source of infection? Yes: Dysuria/Frequency/Urgency/UTI. Risk Assessment: Do you want to hurt yourself or someone else? Patient reports no desire to harm self or others. Onset of symptoms was November 03, 2022. 17:03 Method Of Arrival: Ambulatory ll1 17:03 Acuity: GABY 3 ll1 Triage Assessment: 17:05 General: Appears uncomfortable, Behavior is calm, cooperative, appropriate for age. ll1 Pain: Complains of pain in back Pain currently is 8 out of 10 on a pain scale. Neuro: Reports headache. : Reports burning with urination, pain with urination. Historical: - Allergies: 17:04 Morphine; ll1 - PMHx: 17:04 heart problem; Depression; Anxiety; Kidney stones; ll1 - PSHx: 17:04 kidney stone removal; ll1 - Immunization history:: Client reports having NOT received the Covid vaccine. - Social history:: Smoking status: Patient denies any tobacco usage or history of. Screenin:44 [facility] ED Fall Risk Assessment (Adult) History of falling in the last 3 months, em6 including since admission No falls in past 3 months (0 pts) Confusion or Disorientation No (0 pts) Intoxicated or Sedated No (0 pts) Impaired Gait No (0 pts) Mobility Assist Device Used No (0 pt) Altered Elimination No (0 pt) Score/Fall Risk Level 0 - 2 = Low Risk Oriented to surroundings, Maintained a safe environment, Educated pt \T\ family on fall prevention, incl call for assistance when getting out of bed, Assessed \T\ reinforced patient's understanding of fall precautions, Provided non-skid footwear, Hourly rounding (assess needs \T\ fall precautionary measures) done, Used ambulatory aids as needed (educated on \T\ assisted with), Used gait belt as appropriate. Abuse screen: Denies threats or abuse. Nutritional screening: No deficits noted. Tuberculosis screening: No symptoms or risk factors identified. Assessment: 20:35 General: Appears in no apparent distress. Behavior is cooperative. Pain: Complains of em6 pain in back Pain does not radiate. Pain currently is 5 out of 10 on a pain scale. Quality of pain is described as pressure, sharp. Neuro: Level of Consciousness is awake, alert, obeys commands, Oriented to person, place, time, situation. Cardiovascular: Patient's skin is warm and dry. Respiratory: Airway is patent Respiratory effort is even, unlabored, Respiratory pattern is regular, symmetrical. GI: Abdomen is non-distended, Bowel sounds present X 4 quads. Abd is soft and non tender X 4 quads. : Reports vaginal bleeding that is. EENT: No signs and/or symptoms were reported regarding the EENT system. Derm: No signs and/or symptoms reported regarding the dermatologic system. Musculoskeletal: Circulation, motion, and sensation intact. Range of motion: intact in all extremities. Vital Signs: 17:03 BP 150 / 109; Pulse 106; Resp 17; Temp 99.0; Pulse Ox 99% ; Weight 90.72 kg; Height 5 ll1 ft. 7 in. (170.18 cm); Pain 8/10; 20:44 BP 114 / 72; Pulse 73; Resp 16; Pulse Ox 100% on R/A; em6 17:03 Body Mass Index 31.32 (90.72 kg, 170.18 cm) ll1 ED Course: 16:59 Patient arrived in ED. rg4 17:00 Jorge Verduzco PA is PHCP. pamm 17:00 Gerry Benitez DO is Attending Physician. jmm 17:04 Triage completed. ll1 17:05 Arm band placed on. ll1 18:05 Urine Microscopic Only Sent. bc6 18:05 CMP Sent. bc6 18:05 Lipase Sent. bc6 18:05 Initial lab(s) drawn, by wa, sent to lab. Urine collected: clean catch specimen. bc6 Inserted saline lock: 20 gauge in left antecubital area, using aseptic technique. 18:58 CT Abd/Pelvis - IV Contrast Only In Process Unspecified. EDMS 20:05 Patient notified of wait time. tw5 20:24 Norma Viveros, RN is Primary Nurse. em6 20:25 Albino Her MD is Referral Physician. m 20:30 Bed in low position. Call light in reach. Side rails up X 1. Pulse ox on. NIBP on. Warm em6 blanket given. 20:45 No provider procedures requiring assistance completed. IV discontinued, intact, em6 bleeding controlled, No redness/swelling at site. Pressure dressing applied. Administered Medications: 20:24 Drug: Rocephin (cefTRIAXone) 1 grams Route: IV; Rate: calculated rate; Site: left em6 antecubital; 20:45 Follow up: Response: No adverse reaction; IV Status: Completed infusion; IV Intake: [id number] Medication: 20:45 VIS not applicable for this client. em6 Intake: 20:45 IV: 10ml; Total: 10ml. em6 Outcome: 20:26 Discharge ordered by . [facility] 20:45 Discharged to home ambulatory. em6 20:45 Condition: stable 20:45 Discharge instructions given to patient, Instructed on discharge instructions, follow up and referral plans. medication usage, Demonstrated understanding of instructions, follow-up care, medications, Prescriptions given X 1. 20:48 Patient left the ED. em6 Signatures: Dispatcher [employer] EDMS Jorge Verduzco PA PA jmm Garcia, Rubi rg4 Kalpana Barrera RN RN Maria Luz Brown tw5 Norma Viveros, RN RN em6 Yarelis Herrera 6
[2022-11-05] MEDS ORDERED: CEFTRIAXONE 1000 MG/VIAL ONE (20:32)
[2022-11-05 21:27] VITALS: TEMP 99
[2022-11-05 21:28] VITALS: BP 114/72; O2SAT 100
== END 2022-11-05 20:48 | disposition home or self-care (01) ==
LOC: ER 16:58
DX: N30.01 Acute cystitis with hematuria (principal)
CPT/HCPCS: 96365; 85025; 87086; 36415; 83690; 80053; 74177; 99284; Q9967; 81003; 81015; 87088

== ENCOUNTER 2022-11-06 21:02 | Emergency (ER) | payer OTHER, SELFPAY ==
--- OUTSIDE RECORDS SUMMARY | 2022-11-06 21:06 | XMS REPORT | Continuity of Care Document ---
:2000 Author Organization [facility] t Address [address] [place] [address] Care Team Providers Name Role Phone PCP, [...] rs active active ity of problems problems [facility] Allergies, Adverse Reactions, Alerts Allergy Allergy Status [...] DA Active U 2010- [facility] Allergie 7-08 [place] 00:00: Region[place] 00 l [facility] NO KNOWN Drug Active Univers ALLERGIE Class ity of S [place] [facility] Social History Social Habit Start Date Stop Date Quantity Comments Source Exposure to 2022-06-13 2022-06-23 Not sure [facility] SARS-CoV-2 (event) 00:00:00 19:41:00 Medica l Branch Sex Assigned At [birth year] [facility] y of [place] 00:00:00 00:00:00 Medical Branch Smoking Status Start Date Stop Date Source Tobacco smoking consumption Univ [facility] Medical unknown Branch Medications Ordered Filled Start [...] ed, Routine, Pain (scale 7-10) naproxen Yes [id number] 550mg Take 1 U nivers sodium 550 8-23 tablet by ity of mg tablet 00:00[place] the Medical morning Branch and 1 tablet in the evening. Take with meals. levoFLOXaci 0 Yes [id number] 500mg Take 1 Univers n 8-23 tablet by ity of (LEVAQUIN) 00:00: mouth [place] 500 mg 00 every 24 Medical tablet (twenty-fo Branch ur) hours. methocarbam 0 Yes [id number] 500mg Take 1 Univers oL 500 mg 8-23 tablet by ity o f tablet 00:00: mouth [place] 00 every 6 Medical (six) Branch hours as needed for Pain (scale 7-10). Vital Signs Vital Name Observation Time Observation Value Comments Source Systolic blood 2022-06-24 04:00:00 122 mm[Hg] Univer sity of pressure [place] [facility] Diastolic blood 2022-06-24 04:00:00 81 mm[Hg] Unive rsity of pressure [place] [facility] Heart rate 2022-06-24 04:00:00 68 /min [facility]i ty [facility] [place] [facility] Respiratory rate 2022-06-24 04:00:00 20 /min Univ ers[facility] [place] [facility] Oxygen saturation in 2022-06-24 04:00:00 100 /min University of Arterial blood by [facility] Pulse oximetry Branch Body temperature 2022-06-24 00:44:00 36.72 Alejandra Univ [facility] [place] [facility] Body height 2022-06-24 00:44:00 167.6 cm [facility] [place] [facility] Body weight 2022-06-24 00:44:00 94.802 kg [facility] [place] [facility] BMI 2022-06-24 00:44:00 33.73 kg/m2 [facility] [place] [facility] Systolic blood 2021-05-25 14:05:00 150 mm[Hg] Univer sity of [facility] Medical Branch Diastolic blood 2021-05-25 14:05:00 86 mm[Hg] Unive rsity of pressure [place] [facility] Heart rate 2021-05-25 14:05:00 107 /min [facility] [place] [facility] Body temperature 2021-05-25 14:05:00 37.56 Alejandra Univ [facility] [place] [facility] Respiratory rate 2021-05-25 14:05:00 18 /min Univ [facility] [place] [facility] Body height 2021-05-25 14:05:00 167.6 cm [facility] [place] [facility] Body weight 2021-05-25 14:05:00 93.895 kg [facility] [place] [facility] BMI 2021-05-25 14:05:00 33.41 kg/m2 [facility] [place] [facility] Oxygen saturation in 2021-05-25 14:05:00 99 /min University of Arterial blood by [facility] Pulse oximetry Branch Procedures Procedure Date / Time Performed Performing Clinician Sourc e XR CHEST 1 VW 2022-06-24 02:54:00 Audra Jacobson [facility] XR FOREARM 2 VW LEFT 2022-06-24 02:54:00 [facility] WO 2022-06-24 02:53:58 Audra Jacobson [facility] CONTRAST Medical Branch CT HEAD WO CONTRAST 2022-06-24 02:53:58 Audra Jacobson [facility] CT LUMBAR SPINE WO 2022-06-24 02:53:58 Audra Jacobson [facility] CONTRAST Medical Branch CT THORACIC SPINE WO 2022-06-24 02:53:58 Audra Jacobson [facility] CONTRAST Medical Branch POCT TEST 2022-06-24 02:17:00 Audra Jacobson [facility] URINALYSIS 2022-06-24 00:50:00 Audra Jacobson [facility] NOTICE OF PRIVACY 2022-06-24 00:36:00 Doctor Unassigned, No [facility] CONSENT/REFUSAL FOR 2022-06-24 00:35:07 Doctor Unassigned, No [facility] [place] DIAGNOSIS AND Name Medical Branch TREATMENT BASIC METABOLIC PANEL 2021-05-25 14:55:00 Singer Douglas [facility] (NA, K, CL, CO2, Medical Branch GLUCOSE, BUN, CREATININE, CA) CBC WITHOUT DIFF 2021-05-25 14:55:00 Singer [facility] URINALYSIS 2021-05-25 14:55:[address] [facility] o [facility] POCT TEST 2021-05-25 14:17:00 Douglas Lo [facility] NOTICE OF PRIVACY 2021-05-25 13:56:43 [facility]igned, [facility] CONSENT/REFUSAL FOR 2021-05-25 13:56:29 Doctor Unassigned, No [facility] AND Name Medical Branch TREATMENT Encounters Start End Encounter Admission Attending Care Care Encounter Source Date/Time Date/Time Type Type Clinicians Facility Department ID 2022-06-23 2022-06-23 Emergency X BRIAN HIJASON ERT [id number] Univers 19:48:00 23:09:00 [facility] 2022-06-23 2022-06-23 [facility] [id number] Univers 19:48:00 23:09:00 Audra ODONNELL [id number] itnicole [facility] [id number] [facility] [id number] [address] 2021-08-10 2021-08-10 Inpatient EM VIOLA JacksonKW [facility] [id number] [facility] 00:05:00 01:05:00 Adilson 77 [facility] 2021-05-25 2021-05-25 Emergency [facility] [id number] Univers 09:06:00 10:36:00 Douglas Darlene [id number] carrie [facility] 4.2.7.2.686 [facility] [id number] [address] 2021-05-25 2021-05-25 Emergency [address] [facility] [id number] Univers 09:06:00 09:06:00 DOUGLAS dale [facility] 2019-01-23 2019-01-24 Inpatient EM Lily [facility] [id number] [facility] 12:46:00 17:10:00 Gordy Lofton [facility] Results Test Description Test Time Test Comments Results Result Comments Source POCT TEST 2022-06-24 02:17:00 Test Item Value Reference Range Interpretation Comme nts POCT PREG (test code = 1605) - On board controls acceptable with C Line (test code = 3574) yes POCT PREG LOT # (test code = 3575) [id number] POCT PREG TEST DATE (test code = 3576) 08/31/2023 Lab Interpretation (test code = 26882-2) Normal [facility]- XR FEMUR MIN 2 VW [id number] 00:47:00 [facility] 2000 Sex: F FAX: Adilson Jackson MD [phone] [place]: St: REG Name: KAITLIN COREY [place] : 2000 Age/S: 21/F [address] [facility] Unit #: [id number] Loc: [place] [address] Phys: Adilson Jackson MD Acct: [id number] Dis Date: Status: REG ER PHONE #: Exam Date: 08/10/2021 0028 FAX #: Reason: TRAUMA EXAMS: CPT CODE: [id number] XR FEMUR MIN [address] [place] [address] DICTATION LOCATION: [facility] HISTORY: Female, 21 years of age withleft leg pain secondary to trauma EXAM: LEFT FEMUR, 2 VIEWS COMPARISON: None FINDINGS: No significant soft tissue swelling or arthropathy. No fracture, dislocation, periosteal reaction, osteolytic or osteoblastic lesion. IMPRESSION: No acute osseous abnormality. at 0047 Reported and signed by: Madison Ascencio MD CC: Adilson Jackson MD Technologist: PHILOMENA Dow RT (R,CT) [facility] Date/Time/By: 08/10/2021 (0047) : By: LeenaCLW PAGE 1Signed Report FAX: Adilson Jackson MD [phone] [place]: St: REG Name: KAITLIN COREY : 2000 Age/S:[address] [facility] Unit #: [id number] [place] [address] Phys: Tonny Jackson MD Acct: [id number] Dis Date: Status: REG ER PHONE #: Exam Date: 08/10/2021 0028 FAX #: Reason: TRAUMA EXAMS: CPT CODE: [id number] XR FEMUR MIN [address] [place] [address] <Continued> Orig Print D/T: S: 08/10/2021 (0050) PAGE 2 Signed Report- XR KNEE 3 V [id number] 00:44:00[facility] KAITLIN COREY : 2000 Sex: F FAX: Adilson Jackson MD [phone] [place]: St: REG Name: KAITLIN COREY : 2000 Age/S: [address] [facility] Unit #: [id number] Loc: [place], [place] [address] Phys: Adilosn Jackson MD Acct: [id number] Dis Date: Status: REG ER PHONE #: Exam Date: 08/10/202127 FAX #: Reason: TRAUMA EXAMS: CPT CODE: [id number] XR KNEE 3 V LT [address] EXAM: - XR KNEE 3 V LT [...] Jackson MD Technologist: PHILOMENA Dow RT (R,CT) Trntxrd Date/Time/By: 08/10/2021 (0044) : By: [email or web address] PAGE 1 Signed Report FAX: Adilson Jackson MD [phone] [place]: St: REG Name: KAITLIN COREY [place] : 2000 Age/S: 21/F [address] [facility] Unit #: [id number] Loc: [place], [place] [address] Phys: Adilson Jackson MD Acct: [id number] Dis Date: Status: REG ER PHONE #: Exam Date: 08/10/202127 FAX #: Reason: TRAUMA EXAMS: CPT CODE: [id number] XR KNEE 3 V LT [address] <Continued> Orig Print D/T: S: 08/10/2021 (0047) PAGE 2 Signed Report [id number] 15:16:27 Test Item Value Reference Range Interpretation Comments APPEARANCE (test code = Hazy Clear A 0802257626) COLOR (test code = Yael Yellow A 4311191712) PH (test code = 4.8-8.0 0631511655) SP GRAVITY (test code = 1.003-1.030 H 5351491973) GLU U QUAL (test code = Normal Normal 8639020238) BLOOD (test code = 1+ Negative A 3764336946) KETONES (test code = Negative Negative 8209863495) PROTEIN (test code = 30 mg/dL Negative A 2887-8) UROBILIN (test code = Normal Normal 6084716065) BILIRUBIN (test code = Negative Negative 2292814735) NITRITE (test code = Negative Negative 2524329640) LEUK NASIR (test code = Negative Negative 3681875182) RBC/HPF (test code = See_Comment H [Autom ated message] 6605288362) The system 5 CUPS and some sugar generated this result transmitted ref erence range: 0 - 3 HP F. The reference range was not used to int erpret this result as normal/abnormal . WBC/HPF (test code = See_Comment [Autom ated message] 4939753432) The system 5 CUPS and some sugar generated this result transmitted ref erence range: 0 - 5 HP F. The reference range was not used to int erpret this result as normal/abnormal . BACTERIA (test code = Negative Negative 5419582037) MUCOUS (test code = Marked Negative LPF A 9392090688) SQ EPITH (test code = HPF 8699000331) Lab Interpretation (test Abnormal code = 64888-0) [facility] (NA, K, CL, CO2, GLUCOSE, BUN, CREATININE, CA)2021-05-25 15:12:16 Test Item Value Reference Range Interpretation Comments NA (test code = 139 mmol/L 135-145 0511457246) K (test code = 3.9 mmol/L 3.5-5.0 9936855890) CL (test code = 104 mmol/L 98-108 3273790238) CO2 TOTAL (test code 23 mmol/L 23-31 = 0043164679) AGAP (test code = 2-16 2303105303) BUN (test code = 13 mg/dL 7-23 7516004291) GLUCOSE (test code = 98 mg/dL 70-110 6146912648) CREATININE (test code 0.86 mg/dL 0.50-1.04 = 8454544301) CALCIUM (test code = 9.5 mg/dL 8.6-10.6 2965333619) eGFR (test code = mL/min/1.73m2 4733224521) TIAN (test code = TIAN) Association of [...] or urine or abnormalities in imaging tests). [facility] WITHOUT [id number] 15:00:14 Test Item Value Reference Range Interpretation [...] MPV (test code = 10.6 fL 9.5-12.9 78230-2) RDW-CV (test code = 12.5 % 12.0-15.5 788-0) RDW-SD (test code = 39.2 fL 39.0-49.9 11214-0) NRBC x10^3 (test <0.01 See_Comment [Automated message] The code = 0616362213) system [facility] generated this result tra nsmitted reference range : 10*3/?L. The reference r deacon was not used to int erpret this result as normal/abnormal . NRBC/100 WBC (test See_Comment [Automat ed message] The code = 5290812848) system [facility] generated this result tra nsmitted reference range : 0.0 - 10.0 /100 WBCs. The reference range was not used to interpr et this result as normal/abnormal . IPF % (test code = 3302461865) [facility] [id number] 14:17:00 Test Item Value Reference Range Interpretation Comments POCT PREG (test code = 1605) negative On board controls acceptable with C present Line (test code = 3574) Lab Interpretation (test code = Normal 68947-1) [facility]ORT[facility] [id number] 10:53:00 Test Item Value Reference Range Interpretation Comments CORTISOL AM (test code = CORTAM) 17.69 mcG/DL 3.44-22.40 N THYROID STIMULATING [id number] 10:42:00 Test Item Value Reference Range Interpretation [...] <2 NG/ML. Specimen comments: SEPSIS WORKUPLACTIC ACID [id number] 23:34:00 Test Item Value Reference Range Interpretation Comments LACTIC ACID POC (test code = 0.72 MMOL/L i 0.40-2.00 N LACTP) URINALYSIS [id number] 21:39:00 Test Item Value Reference Range Interpretation [...] /LPF NONE A MUCU) - US ABDOMEN [id number] 20:57:00 Patient Name: KAITLIN COREY Unit No: [id number] EXAMS: CPT CODE: [id number] US ABDOMEN [facility] [address] Site ID: [id number] Abdominal ultrasound, limited (Right [...] ultrasound. at 2056 Reported and signed by: Vin Love M.D. CC: Carolina Xiong NP Technologist: Wilson Tijerina RDMS Trnscrbd D/ (2056) [email or web address] Orig Print D/T: S: 01/22/2019 (2100) Probe: MARCO Flor NAME: KAITLIN CROEY [address] [place] [address] Blvd PHYS: Carolina Rivas NP [place], [place] [address] : 2000 AGE: 18 SEX: F LOC: [place] PHONE #: [phone] EXAM DATE: 01/22/2019 STATUS: REG ER FAX #: [phone] RAD NO: Page 1 Signed ReportBASIC METABOLIC [...] 1 NORMAL code = LIPINDEX) Index/DL HCG [id number] 20:23:00 Test Item Value Reference Range Interpretation Comments HCG SERUM (test 39182 mi-IU/ML 0-3 H HCG RANGE S DURING code = HCG) NORMAL PREGNANC YPOST LMP 3-4 WEEKS 9 - 130 MIU/ML4-5 WEEKS 75 - 2,600 MIU/ML5-6 WEEKS 850 - 20,800 TN U/ML6-7 WEEKS 4,000 - 1 00,200 MIU/ML7-12 WEEK S 11,500 - 289,000 MIU/M L12-16 WEEKS 18,300 - 137,000 MIU/ML16-29 WEE KS 1,400 - 53,000 MIU/ML 29-41 WEEKS 940 - 60, 000 MIU/ML BASIC METABOLIC [id number] 20:13:00 Test Item Value Reference Range Interpretation [...] 1 NORMAL code = LIPINDEX) Index/DL HCG [id number] 20:13:00 Test Item Value Reference Range Interpretation Comments HCG SERUM (test code = HCG) mi-IU/ML 0-3 CBC W/O [id number] 19:50:00 Test Item Value Reference Range Interpretation [...] N MPV) - US PREG EVAL 1ST [id number] 19:04:00 Patient Name: KAITLIN COREY Unit No: [id number] EXAMS: CPT CODE: [id number] US PREG EVAL 1ST TRIMTR 28114 HISTORY: Female, 18 years of age with [...] 01/22/2019 (1906) Probe: MARCO Flor NAME: HOMERO COREY[address] PHYS: Sussy Li NP, [place] [address] : 2000 AGE: 18 SEX: F LOC: [place] PHONE #: [phone] EXAM DATE: 01/22/2019 STATUS: PRE ER FAX #: [phone] RAD NO: Page 1 Signed Report"
[2022-11-06 22:00] LABS: Absolute Lymphocytes (CBC) 1.3 K/uL (0.7-4.9); Lymphocytes % 30.6 % (15.3-44.8); MCV 88.7 fL (80-100); MPV 8.7 fL (7.6-11.3); RBC Red Blood Cell Count 4.39 M/uL (3.86-4.86)
[2022-11-06 22:20] LABS: Albumin 4.2 g/dL (3.4-5.0); Bilirubin Total 0.5 mg/dL (0.2-1.0); Protein, Total 7.8 g/dL (6.4-8.2)
[2022-11-06] MEDS ORDERED: KETOROLAC 30 MG/ML INJ ONE (23:04)
[2022-11-06] MEDS ORDERED: NA CHLORIDE 0.9% 1,000 ML ONE (23:04)
[2022-11-07] MEDS ORDERED: CEFTRIAXONE 1000 MG/VIAL ONE (00:45)
--- NOTE | 2022-11-07 00:52 | EDPHYS ---
Physician Documentation [facility] Name: Jaymie Garduno Age: 22 yrs Sex: Female : 2000 Arrival Date: 11/06/2022 Time: 21:08 Bed 9 Private MD: ED Physician Deloris Wilson HPI: 11/07 00:50 This 22 yrs old Female presents to ER via Ambulatory with complaints of Urinary kb Incontinence, Pain With Urination, Hematuria. 00:50 The patient presents with urinary symptoms, dysuria, frequency, hematuria, Difficulty kb urinating. Onset: The symptoms/episode began/occurred yesterday. Modifying factors: The symptoms are alleviated by nothing, the symptoms are aggravated by urinating. Associated signs and symptoms: Pertinent positives: dysuria, hematuria. Severity of symptoms: At their worst the symptoms were moderate, in the emergency department the symptoms are unchanged. The patient has experienced similar episodes in the past. The patient has been recently seen at the [facility] Emergency Department, yesterday. Patient states she was just diagnosed with a UTI yesterday and prescribed antibiotics. States she is having difficulty urinating today.. 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 Last tetanus immunization: up to date. - Social history:: Smoking status: Patient denies any tobacco usage or history of. ROS: 11/07 00:49 Constitutional: Negative for fever, chills, and weight loss. kb Abdomen/GI: Positive for abdominal pain, Negative for nausea, vomiting, and diarrhea. : Positive for flank pain, small amounts, burning with urination, difficulty urinating. All other systems are negative. Exam: 00:49 Constitutional: This is a well developed, well nourished patient who is awake, alert, kb and in no acute distress. Head/Face: Normocephalic, atraumatic. ENT: Moist Mucous membranes Cardiovascular: Regular rate and rhythm with a normal S1 and S2. No gallops, murmurs, or rubs. No pulse deficits. Respiratory: Respirations even and unlabored. No increased work of breathing. Talking in full sentences Abdomen/GI: Soft, non-tender. No distention Skin: Warm, dry with normal turgor. Normal color. MS/ Extremity: Pulses equal, no cyanosis. Neurovascular intact. Full, normal range of motion. Neuro: Awake and alert, GCS 15, oriented to person, place, time, and situation. Moves all extremities. Normal gait. Psych: Awake, alert, with orientation to person, place and time. Behavior, mood, and affect are within normal limits. Vital Signs: 11/06 21:17 BP 137 / 97; Pulse 91; Resp 20; Pulse Ox 98% ; Weight 90.72 kg; Height 5 ft. 7 in. kb3 (170.18 cm); Pain 8/10; 21:58 BP 123 / 77; Pulse 86; Resp 18; Pulse Ox 100% on R/A; em6 23:05 BP 110 / 66; Pulse 72; Resp 18; Pulse Ox 100% on R/A; em6 11/07 00:38 BP 108 / 74; Pulse 84; Resp 16 S; Pulse Ox 99% on R/A; bb 11/06 21:17 Body Mass Index 31.32 (90.72 kg, 170.18 cm) kb3 MDM: 11/06 21:22 Patient medically screened. kb 11/07 00:47 Differential diagnosis: bacterial infection, UTI, Pyelonephritis. Data reviewed: vital kb signs, nurses notes. Data interpreted: Pulse oximetry: on room air is 99 %. Interpretation: normal. Counseling: I had a detailed discussion with the patient and/or guardian regarding: the historical points, exam findings, and any diagnostic results supporting the discharge/admit diagnosis, lab results, radiology results, the need for outpatient follow up, a family practitioner, to return to the emergency department if symptoms worsen or persist or if there are any questions or concerns that arise at home. ED course: I considered the following discharge prescriptions or medication management in the emergency department: Antibiotics considered but patient was prescribed Vantin yesterday. Patient has not picked up Vantin from the pharmacy yet. Patient educated to start taking antibiotics and complete full course. Diagnostic test considered but not performed: CT scan considered but not completed because patient had CT abdomen pelvis yesterday. CT showed no acute findings. History obtained from: Patient. ED course: Patient able to urinate. No gross blood seen. 11/06 21:23 Order name: CBC with Diff; Complete Time: 22:08 kb 11/06 21:23 Order name: CMP; Complete Time: 22:23 kb 11/06 21:23 Order name: Lipase; Complete Time: 22:23 kb 11/07 00:53 Order name: Urine Dipstick-Ancillary; Complete Time: 01:00 EDMS 11/07 00:55 Order name: Urine Dipstick-Ancillary EDMS 11/07 01:00 Order name: Urine --Ancillary (enter results) wm 11/06 21:23 Order name: IV Saline Lock; Complete Time: 21:54 kb 11/06 21:23 Order name: Labs collected and sent; Complete Time: 21:54 kb 11/06 21:23 Order name: Urine Dipstick-Ancillary (obtain specimen); Complete Time: 00:59 kb 11/06 22:08 Order name: Bladder Scanner; Complete Time: 22:33 kb Administered Medications: 11/06 22:58 Drug: NS 0.9% 1000 ml Route: IV; Rate: 1000 ml; Site: left antecubital; em6 11/07 00:39 Follow up: IV Status: Completed infusion; IV Intake: 950ml bb 11/06 22:58 Drug: Ketorolac 15 mg Route: IVP; Site: left antecubital; em6 11/07 00:39 Follow up: Response: No adverse reaction 00:48 Drug: Rocephin (cefTRIAXone) 1 grams Route: IV; Rate: calculated rate; Site: left bb antecubital; 00:58 Follow up: IV Status: Completed infusion; IV Intake: 10ml bb Disposition Summary: 11/07/22 00:51 Discharge Ordered Location: Home Condition: Stable kb Diagnosis - UTI/ Urinary tract infection, site not specified kb Followup: kb - With: Emergency Department - When: As needed - Reason: Worsening of condition Followup: kb - With: Private Physician - When: 2 - 3 days - Reason: Recheck today's complaints, Continuance of care, Re-evaluation by your physician Discharge Instructions: - Discharge Summary Sheet kb - Urinary Tract Infection, Adult, [id number] kb Forms: - Medication Reconciliation Form kb - Thank You Letter kb - Antibiotic Education kb - Prescription Opioid Use kb Signatures: Dispatcher [employer] Jyoti Cadena FNP-C FNP-Vivien Castle, RN RN bb Norma Viveros RN RN em6 Lidia Shepard RN RN kb3
--- NOTE | 2022-11-07 00:52 | ER ---
Nurse's Notes [facility] Name: Jaymie Garduno Age: 22 yrs Sex: Female : 2000 Arrival Date: 11/06/2022 Time: 21:08 Bed 9 Private MD: Diagnosis: UTI/ Urinary tract infection, site not specified Presentation: 11/06 21:17 Chief complaint: Patient states: diagnosed with cystitis yesterday, reports worse pain kb3 and difficulty urinating today, states unable to void x1 hr. Coronavirus screen: Vaccine status: Patient reports being unvaccinated. Client denies travel out of the [place] in the last 14 days. Ebola Screen: Patient negative for fever greater than or equal to 101.5 degrees Fahrenheit, and additional compatible Ebola Virus Disease symptoms Patient denies exposure to infectious person. Patient denies travel to an Ebola-affected area in the 21 days before illness onset. Initial Sepsis Screen: Does the patient meet any 2 criteria? No. Patient's initial sepsis screen is negative. Does the patient have a suspected source of infection? No. Patient's initial sepsis screen is negative. Risk Assessment: Do you want to hurt yourself or someone else? Patient reports no desire to harm self or others. Onset of symptoms was November 03, 2022. 21:17 Method Of Arrival: Ambulatory kb3 21:17 Acuity: GABY 3 kb3 Triage Assessment: 21:20 General: Appears in no apparent distress. uncomfortable, Behavior is calm, cooperative. kb3 Pain: Complains of pain in pelvis Pain does not radiate. Pain currently is 8 out of 10 on a pain scale. Quality of pain is described as burning. 21:20 : Reports burning with urination, inability to void, pain urgency, urinary frequency, kb3 vaginal bleeding that is. 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 Last tetanus immunization: up to date. - Social history:: Smoking status: Patient denies any tobacco usage or history of. Screenin:[facility] ED Fall Risk Assessment (Adult) History of falling in the last 3 months, em6 including since admission No falls in past 3 months (0 pts) Confusion or Disorientation No (0 pts) Intoxicated or Sedated No (0 pts) Impaired Gait No (0 pts) Mobility Assist Device Used No (0 pt) Altered Elimination No (0 pt) Score/Fall Risk Level 0 - 2 = Low Risk Oriented to surroundings, Maintained a safe environment, Educated pt \T\ family on fall prevention, incl call for assistance when getting out of bed, Assessed \T\ reinforced patient's understanding of fall precautions, Provided non-skid footwear, Hourly rounding (assess needs \T\ fall precautionary measures) done, Used ambulatory aids as needed (educated on \T\ assisted with), Used gait belt as appropriate. Abuse screen: Denies threats or abuse. Nutritional screening: No deficits noted. Tuberculosis screening: No symptoms or risk factors identified. Assessment: 21:40 General: Appears in no apparent distress. Behavior is cooperative. Pain: Complains of em6 pain in back and pelvis Pain does not radiate. Pain currently is 10 out of 10 on a pain scale. Quality of pain is described as pressure, sharp. Neuro: Level of Consciousness is awake, alert, obeys commands, Oriented to person, place, time, situation, Reports headache frontal area. Cardiovascular: Heart tones present Patient's skin is warm and dry. Respiratory: Airway is patent Respiratory effort is even, unlabored, Respiratory pattern is regular, symmetrical. GI: Abdomen is non-distended, Bowel sounds present X 4 quads. Abd is soft and non tender X 4 quads. : Reports burning with urination, discharge, inability to void, vaginal bleeding that is bright red, with clots, that her genitals are swollen and it hurts. and it radiates to her lower back. EENT: No signs and/or symptoms were reported regarding the EENT system. Derm: No signs and/or symptoms reported regarding the dermatologic system. Musculoskeletal: Circulation, motion, and sensation intact. Range of motion: intact in all extremities. 22:40 Reassessment: Patient appears in no apparent distress at this time. No changes from em6 previously documented assessment. Patient and/or family updated on plan of care and expected duration. Pain level reassessed. Patient is alert, oriented x 3, equal unlabored respirations, skin warm/dry/pink. 23:49 Reassessment: Patient appears in no apparent distress at this time. No changes from em6 previously documented assessment. Patient and/or family updated on plan of care and expected duration. Pain level reassessed. Patient is alert, oriented x 3, equal unlabored respirations, skin warm/dry/pink. 11/07 00:39 Reassessment: Patient is alert, oriented x 3, equal unlabored respirations, skin bb warm/dry/pink. pt instructed on need for urine sample. IV site intact no erythema or edema noted. 01:00 Reassessment: Patient is alert, oriented x 3, equal unlabored respirations, skin bb warm/dry/pink. pt verbalized understanding of and agrees to plan of care discharge instructions given pt ambulated with steady gait to exit accompanied by family. Vital Signs: 11/06 21:17 BP 137 / 97; Pulse 91; Resp 20; Pulse Ox 98% ; Weight 90.72 kg; Height 5 ft. 7 in. kb3 (170.18 cm); Pain 8/10; 21:58 BP 123 / 77; Pulse 86; Resp 18; Pulse Ox 100% on R/A; em6 23:05 BP 110 / 66; Pulse 72; Resp 18; Pulse Ox 100% on R/A; em6 11/07 00:38 BP 108 / 74; Pulse 84; Resp 16 S; Pulse Ox 99% on R/A; bb 11/06 21:17 Body Mass Index 31.32 (90.72 kg, 170.18 cm) kb3 ED Course: 11/06 21:08 Patient arrived in ED. [email or web address] 21:20 Triage completed. kb3 21:20 Arm band placed on right wrist. kb3 21:22 Jyoti Camacho FNP-C is [facility]. kb 21:22 Deloris Wilson MD is Attending Physician. kb 21:30 Norma Viveros, CAR is Primary Nurse. em6 21:40 Inserted saline lock: 20 gauge in right antecubital area, using aseptic technique. em6 Blood collected. 21:59 Placed in gown. Bed in low position. Call light in reach. Side rails up X 1. Pulse ox em6 on. NIBP on. Warm blanket given. 21:59 CBC with Diff Sent. em6 21:59 CMP Sent. em6 21:59 Lipase Sent. em6 22:33 Bladder scan completed. 44 ml. em6 11/07 00:50 Urine collected: clean catch specimen, clear. bb 01:01 No provider procedures requiring assistance completed. IV discontinued, intact, bb bleeding controlled, No redness/swelling at site. Pressure dressing applied. Administered Medications: 11/06 22:58 Drug: NS 0.9% 1000 ml Route: IV; Rate: 1000 ml; Site: left antecubital; em6 11/07 00:39 Follow up: IV Status: Completed infusion; IV Intake: 950ml bb 11/06 22:58 Drug: Ketorolac 15 mg Route: IVP; Site: left antecubital; em6 11/07 00:39 Follow up: Response: No adverse reaction bb 00:48 Drug: Rocephin (cefTRIAXone) 1 grams Route: IV; Rate: calculated rate; Site: left antecubital; 00:58 Follow up: IV Status: Completed infusion; IV Intake: 10ml bb Medication: 11/06 23:06 VIS not applicable for this client. em6 Intake: 11/07 00:39 IV: 950ml; Total: 950ml. bb 00:58 IV: 10ml; Total: 960ml. bb Outcome: 00:51 Discharge ordered by . kb 01:01 Discharged to home ambulatory, with family. bb 01:01 Condition: stable 01:01 Discharge instructions given to patient, Instructed on discharge instructions, follow up and referral plans. medication usage, Demonstrated understanding of instructions, follow-up care, medications. 01:01 Patient left the ED. bb Signatures: Jyoti Camacho, FRONT COUNTER ATTENDANT-C SHARYN-Vivien Castle RN RN bb Rut [id number] Norma Viveros RN RN em6 Lidia Shepard RN RN kb3
[2022-11-07 00:53] LABS: Urine Blood 1+ (Negative); Urine Glucose Negative (Negative); Urine Protein 1+ (Negative); Urine Specific Gravity >=1.030 (1.005-1.030); Urine pH 5.5 (5.0-7.0)
[2022-11-07 01:10] LABS: Urine Specific Gravity/Preg >1.030 (1.005-1.030)
[2022-11-07 02:37] VITALS: BP 108/74; O2SAT 99
== END 2022-11-07 01:01 | disposition home or self-care (01) ==
LOC: ER 21:02
DX: N39.0 Urinary tract infection, site not specified (principal)
CPT/HCPCS: 36415; 80053; 81003; 81025; 83690; 85025; 96361; 96374; 96375; 99284; J7030